=== PATIENT | male | born 1970 | race Caucasian/White ===

== ENCOUNTER 2020-05-18 20:10 | Inpatient (IN) | payer OTHER ==
[~2020-05-18] VITALS: Ht 175.3 cm; Wt 120.3 kg
[2020-05-18 20:15] VITALS: BP 107/70
[2020-05-18 23:00] VITALS: BP 126/63
[2020-05-18] MEDS ORDERED: ONDANSETRON PF 4 MG/2 ML VIAL. IVP PRN (23:15)
[2020-05-18] MEDS ORDERED: MORPHINE SULFATE 4 MG/ML VIAL. IV PRN (23:15)
[2020-05-19] MEDS ORDERED: METO-247 PO (02:50)
[2020-05-19] MEDS ORDERED: LISI10TA2 PO (02:50)
[2020-05-19] MEDS ORDERED: FURO20TA3 PO (02:50)
[2020-05-19] MEDS ORDERED: OMEP20TA63 PO (02:50)
[2020-05-19] MEDS ORDERED: LOSA-73 PO (02:50)
[2020-05-19] MEDS ORDERED: POTA10TA12 PO (02:50)
[2020-05-19] MEDS ORDERED: IBUP-1060 PO (02:50)
[2020-05-19 03:00] VITALS: BP 105/66
[2020-05-19 04:32] LABS: BASO # 0.1 x10^3/uL (0.0-0.2); BASO % 1 % (0-3); EOS # 0.1 x10^3/uL (0.0-0.7); EOS % 1 % (0-3); HEMATOCRIT 39.9 % (39.0-53.0); LYMPH # 2.9 x10^3/uL (1.0-4.8); LYMPH % 30 % (24-48); MEAN CORPUSCULAR HEMOGLOBIN 30 pg (25-35); MEAN CORPUSCULAR HGB CONC 35 g/dL (31-37); MEAN CORPUSCULAR VOLUME 86 fL (79-100); MONO # 0.8 x10^3/uL (0.0-1.1); MONO % 9 % (0-9); NEUT # 5.8 x10^3/uL (1.8-7.7); NEUT % 60 % (31-73); PLATELET COUNT 226 x10^3/uL (140-400); RED BLOOD COUNT 4.66 x10^6/uL (4.30-5.70); RED CELL DISTRIBUTION WIDTH 14.5 % (11.5-14.5); WHITE BLOOD COUNT 9.8 x10^3/uL (4.0-11.0)
[2020-05-19 04:58] LABS: ALBUMIN 3.3 g/dL (3.4-5.0); CALCIUM 8.3 mg/dL (8.5-10.1); GFR 78.8; POTASSIUM 4.1 mmol/L (3.5-5.1); TOTAL BILIRUBIN 0.8 mg/dL (0.2-1.0); TOTAL PROTEIN 6.6 g/dL (6.4-8.2)
[2020-05-19 07:00] VITALS: BP 104/70
--- NOTE | 2020-05-19 08:48 | PDOC1 ---
History and Physical Date of Admission Date of Admission DATE: 05/19/20 TIME: 08:48 Identification/Chief Complaint Chief Complaint direct admit from [facility] ER WITH PSBO SEEN ON CT, HAS FELT BETTER SINE ADMIT, HAS BEEN NPO past hx colon resection for diverticulitis , [place] Past Medical History Past Medical History OBESITY Cardiovascular: HTN, Hyperlipidemia GI: Diverticulosis Psych: Addictions Infectious disease: No pertinent hx Past Surgical History Past Surgical History: Colectomy, Colon Resection Family History Family History: High Cholestrol, Hypertension Social History Smoke: Quit ALCOHOL: none Drugs: None Current Medications Current Medications Current Medications Ondansetron HCl (Zofran) 4 mg PRN Q4HRS PRN IVP NAUSEA/VOMITING 1ST CHOICE; Start 05/18/20 at 23:15 Morphine Sulfate (Morphine Sulfate) 4 mg PRN Q2HR PRN IV SEVERE PAIN 7-10 Last administered on 05/19/20at 04:07; Start 05/18/20 at 23:15 Active Scripts Active Reported Ibuprofen 800 Mg Tablet 800 Mg PO PRN TID PRN Prilosec Otc (Omeprazole Magnesium) 20 Mg Tablet.dr 1 Tab PO DAILY 30 Days Klor-Con 10 (Potassium Chloride) 10 Meq Tablet.er 1 Tab PO DAILY 30 Days Furosemide 20 Mg Tablet 10 Mg PO DAILY Metoprolol Succinate ( Xl ) (Metoprolol Succinate) 100 Mg Tab.er.24h 1 Tab PO BID Losartan Potassium 50 Mg Tablet 50 Mg PO DAILY Lisinopril 10 Mg Tablet 1 Tab PO DAILY Allergies Allergies: Coded Allergies: No Known Medication Allergies (Verified Allergy, Unknown, 05/18/20) ROS Review of System 14 pt ros otherwise neg General: No: Chills, Night Sweats, Fatigue, Malaise, Appetite, Other PSYCHOLOGICAL ROS: No: Anxiety, Behavioral Disorder, Concentration difficultie, Decreased libido, Depression, Disorientation, Hallucinations, Hostility, Irritablity, Memory difficulties, Mood Swings, Obsessive thoughts, Physical abuse, Sexual abuse, Sleep disturbances, Suicidal ideation, Other Eyes: No Blurry vision, No Decreased vision, No Double vision, No Dry eyes, No Excessive tearing, No Eye Pain, No Itchy Eyes, No Loss of vision, No Photophobia, No Scotomata, No Uses contacts, No Uses glasses, No Other HEENT: No: Heacaches, Visual Changes, Hearing change, Nasal congestion, Nasal discharge, Oral lesions, Sinus pain, Sore Throat, Epistaxis, Sneezing, Snoring, Tinnitus, Vertigo, Vocal changes, Other ALLERGY AND IMMUNOLOGY: No: Hives, Insect Bite Sensitivity, Itchy/Watery Eyes, Nasal Congestion, Post Nasal Drip, Seasonal Allergies, Other Hematological and Lymphatic: No: Bleeding Problems, Blood Clots, Blood Transfusions, Brusing, Night Sweats, Pallor, Swollen Lymph Nodes, Other ENDOCRINE: No: Breast Changes, Galactorrhea, Hair Pattern Changes, Hot Flashes, Malaise/lethargy, Mood Swings, Palpitations, Polydipsia/polyuria, Skin Changes, Temperature Intolerance, Unexpected Weight Changes, Other Breast: No New/Changing Breast Lumps, No Nipple changes, No Nipple discharge, No Other Respiratory: No: Cough, Hemoptysis, Orthopnea, Pleuritic Pain, Shortness of breath, SOB with excertion, Sputum Changes, Stridor, Tachypnea, Wheezing, Other Cardiovascular: No Chest Pain, No Palpitations, No Orthopnea, No Paroxysmal Noc. Dyspnea, No Edema, No Lt Headedness, No Other Gastrointestinal: Yes Nausea, Yes Vomiting, Yes Abdominal Pain, Yes Melena; No Diarrhea, No Constipation, No Hematochezia, No Other Genitourinary: No Dysuria, No Frequency, No Incontinence, No Hematuria, No Retention, No Discharge, No Urgency, No Pain, No Flank Pain, No Other, No , No , No , No , No , No , No Musculoskeletal: No Gait Disturbance, No Joint Pain, No Joint Stiffness, No Joint Swelling, No Muscle Pain, No Muscular Weakness, No Pain In:, No Swelling In:, No Other Neurological: No Behavorial Changes, No Bowel/Bladder ControlChng, No Confusion, No Dizziness, No Gait Disturbance, No Headaches, No Impaired Coord/balance, No Memory Loss, No Numbness/Tingling, No Seizures, No Speech Problems, No Tremors, No Visual Changes, No Weakness, No Other Skin: No Dry Skin, No Eczema, No Hair Changes, No Lumps, No Mole Changes, No Mottling, No Nail Changes, No Pruritus, No Rash, No Skin Lesion Changes, No Other, No Acne Physical Exam General: Alert, Oriented X3, Cooperative, No acute distress HEENT: Atraumatic, PERRLA, EOMI, Mucous membr. moist/pink Lungs: Clear to auscultation, Normal air movement Heart: S1S2, RRR, no thrills, no gallops, no murmurs Breasts: Not examined Abdomen: Normal bowel sounds, Soft, Other (DEC BS ) Rectal Exam: not examined Extremities: No cyanosis, No edema Skin: No breakdown, No significant lesion Neuro: Normal speech, Strength at 5/5 X4 ext, Cranial nerves 3-12 NL Psych/Mental Status: Mental status NL, Mood NL Vitals Vitals Vital Signs Date Time Temp Pulse Resp B/P (MAP) Pulse Ox O2 Delivery O2 Flow Rate FiO2 05/19/20 07:00 97.6 88 16 104/70 (81) 92 Room Air 97.6 Labs Labs Laboratory Tests Test 05/19/20 04:10 White Blood Count 9.8 x10^3/uL (4.0-11.0) Red Blood Count 4.66 x10^6/uL (4.30-5.70) Hemoglobin 14.0 g/dL (13.0-17.5) Hematocrit 39.9 % (39.0-53.0) Mean Corpuscular Volume 86 fL (79-100) Mean Corpuscular Hemoglobin 30 pg (25-35) Mean Corpuscular Hemoglobin Concent 35 g/dL (31-37) Red Cell Distribution Width 14.5 % (11.5-14.5) Platelet Count 226 x10^3/uL (140-400) Neutrophils (%) (Auto) 60 % (31-73) Lymphocytes (%) (Auto) 30 % (24-48) Monocytes (%) (Auto) 9 % (0-9) Eosinophils (%) (Auto) 1 % (0-3) Basophils (%) (Auto) 1 % (0-3) Neutrophils # (Auto) 5.8 x10^3/uL (1.8-7.7) Lymphocytes # (Auto) 2.9 x10^3/uL (1.0-4.8) Monocytes # (Auto) 0.8 x10^3/uL (0.0-1.1) Eosinophils # (Auto) 0.1 x10^3/uL (0.0-0.7) Basophils # (Auto) 0.1 x10^3/uL (0.0-0.2) Sodium Level 140 mmol/L (136-145) Potassium Level 4.1 mmol/L (3.5-5.1) Chloride Level 105 mmol/L (98-107) Carbon Dioxide Level 24 mmol/L (21-32) Anion Gap 11 (6-14) Blood Urea Nitrogen 20 mg/dL (8-26) Creatinine 1.0 mg/dL (0.7-1.3) Estimated GFR (Cockcroft-Gault) 78.8 BUN/Creatinine Ratio 20 (6-20) Glucose Level 98 mg/dL (70-99) Calcium Level 8.3 mg/dL (8.5-10.1) Total Bilirubin 0.8 mg/dL (0.2-1.0) Aspartate Amino Transf (AST/SGOT) 272 U/L (15-37) Alanine Aminotransferase (ALT/SGPT) 165 U/L (16-63) Alkaline Phosphatase 66 U/L (46-116) Total Protein 6.6 g/dL (6.4-8.2) Albumin 3.3 g/dL (3.4-5.0) Albumin/Globulin Ratio 1.0 (1.0-1.7) Laboratory Tests Test 05/19/20 04:10 White Blood Count 9.8 x10^3/uL (4.0-11.0) Red Blood Count 4.66 x10^6/uL (4.30-5.70) Hemoglobin 14.0 g/dL (13.0-17.5) Hematocrit 39.9 % (39.0-53.0) Mean Corpuscular Volume 86 fL (79-100) Mean Corpuscular Hemoglobin 30 pg (25-35) Mean Corpuscular Hemoglobin Concent 35 g/dL (31-37) Red Cell Distribution Width 14.5 % (11.5-14.5) Platelet Count 226 x10^3/uL (140-400) Neutrophils (%) (Auto) 60 % (31-73) Lymphocytes (%) (Auto) 30 % (24-48) Monocytes (%) (Auto) 9 % (0-9) Eosinophils (%) (Auto) 1 % (0-3) Basophils (%) (Auto) 1 % (0-3) Neutrophils # (Auto) 5.8 x10^3/uL (1.8-7.7) Lymphocytes # (Auto) 2.9 x10^3/uL (1.0-4.8) Monocytes # (Auto) 0.8 x10^3/uL (0.0-1.1) Eosinophils # (Auto) 0.1 x10^3/uL (0.0-0.7) Basophils # (Auto) 0.1 x10^3/uL (0.0-0.2) Sodium Level 140 mmol/L (136-145) Potassium Level 4.1 mmol/L (3.5-5.1) Chloride Level 105 mmol/L (98-107) Carbon Dioxide Level 24 mmol/L (21-32) Anion Gap 11 (6-14) Blood Urea Nitrogen 20 mg/dL (8-26) Creatinine 1.0 mg/dL (0.7-1.3) Estimated GFR (Cockcroft-Gault) 78.8 BUN/Creatinine Ratio 20 (6-20) Glucose Level 98 mg/dL (70-99) Calcium Level 8.3 mg/dL (8.5-10.1) Total Bilirubin 0.8 mg/dL (0.2-1.0) Aspartate Amino Transf (AST/SGOT) 272 U/L (15-37) Alanine Aminotransferase (ALT/SGPT) 165 U/L (16-63) Alkaline Phosphatase 66 U/L (46-116) Total Protein 6.6 g/dL (6.4-8.2) Albumin 3.3 g/dL (3.4-5.0) Albumin/Globulin Ratio 1.0 (1.0-1.7) Images Images ACUTE ABDOMEN SERIES History: Reason: SMALL BOWEL OBSTRUCTION / Spl. Instructions: / History: Technique: Upright and supine views of the abdomen. Comparison: CT May 18, 2020 Findings: No consultation or pleural effusion. Normal heart size. No pneumothorax. Right shoulder arthroplasty. No pneumoperitoneum. Surgical clips right upper quadrant. Mildly dilated air-filled loops of small bowel within the mid and left abdomen, decreased compared to prior. Contrast noted throughout the colon and rectum progressed compared to prior. Lower lumbar spondylosis. Impression: 1. Decreased mildly dilated small bowel loops. 2. Progression of contrast into the colon and rectum compared to prior CT. Electronically signed by: Rene Everett DO (05/19/2020 10:44 AM) [id number] DICTATED and SIGNED BY: RENE EVERETT DO DATE: 05/19/20 1044 REASON: transaminitis PROCEDURE: ABDOMEN COMPLETE ABDOMEN COMPLETE History: Reason: transaminitis / Spl. Instructions: / History: Comparison: CT May 18, 2020 Technique: Sonographic examination of the abdomen was performed and multiple grayscale and color Doppler static images were obtained. Findings: Liver demonstrates normal echogenicity. The liver measures 18.7 cm. Portal flow is patent. Common bile duct measures 5.2 mm in diameter. Prior cholecystectomy. Visualized pancreas is is not well seen due to overlying bowel gas The right kidney measures 12.3 x 5.4 x 4.1 cm. No hydronephrosis. The left kidney measures 13.1 x 4.4 x 5.9 cm. No hydronephrosis. The spleen measures 11.4 cm. Aorta and IVC not well seen due to bowel gas. IMPRESSION: 1. Hepatomegaly. 2. Prior cholecystectomy. Electronically signed by: Rene Everett DO (05/19/2020 10:29 AM) [id number] DICTATED and SIGNED BY: RENE EVERETT DO DATE: 05/19/20 1029 VTE Prophylaxis Ordered VTE Prophylaxis Devices: Yes VTE Pharmacological Prophylaxi: Yes Assessment/Plan Assessment/Plan IMPRESSION: 1. PARTIAL Acute small bowel obstruction 2. Hepatomegaly. 3. Prior cholecystectomy. 4. MORBID OBESITY 5. Decreased mildly dilated small bowel loops. KUB 05/19 6. Progression of contrast into the colon and rectum compared to prior CT. 05/19 7. PREVOIUS COLECTOMY FOR DIVERTICULITIS 8. EGD and colonoscopy <1 year ago @ [facility]. H/o diverticular disease s/p partial colectomy in [place]. S/p cholecystectomy for stones 9. HX HEP C 10. HYPERTENSION 11. HYPERLIPIDEMIA 12. ABDOMINAL WALL Hernias, present on admit plan admit NPO TO CLEARS IV FLUID SUPPORT Consult gen surgery consult GI DVT PROPHYLAXIS IV PROTONIX HOME MEDS Justicifation of Admission Dx: Justifications for Admission: Justification of Admission Dx: Yes Comments: partial small bowel obstruction ADRIAN BARLOW MD May 19, 2020 08:48
--- NOTE | 2020-05-19 09:45 | PDOC2 ---
GI CONSULT Date of Service: DATE: 05/19/20 TIME: 09:45 Reason For Consult: SBO HPI: HPI: 49 y/o male who lives in a [facility] house sent from [facility]. 6 months of intermit tent abd pain with "a bubble" by belly button. Worse this time, no precipitating events. Associated with vomiting and diarrhea. H/o GERD on omeprazole. No dysphagia or hematemesis. No change in appetite or weight loss. Occasional constipation in the past improved w/ OTC medications. No hematochezia or melena. EGD and colonoscopy <1 year ago @ [facility]. H/o diverticular disease s/p partial colectomy in [place]. S/p cholecystectomy for stones - had GS pancreatitis. H/o Hep C recently treated w/ Harvoni. Ibuprofen PRN. At [facility]: WBC 13.4, BUN 27, Cr 1.2, AST 502, ALT 214, normal lipase. CT w/ Dilated SB loops and distal decompression - possible partial SBO. Also noted multiple abd wall hernias w/ loops of bowel. PMH: PMH: PSVT, MRSA abscess, HTN, gallstone pancreatitis, diverticular disease cholecystectomy, partial colectomy FH: Family History: No pertinent hx Social History: Smoke: No ALCOHOL: none Drugs: Other (IVDU in the past) ROS: GEN: Denies fevers, chills, sweats HEENT: Denies blurred vision, sore throat CV: Denies chest pain RESP: Denies shortness of air, cough GI: Per HPI : Denies hematuria, dysuria ENDO: Denies weight changes NEURO: Denies confusion, dizziness MSK: Denies weakness, joint pain/swelling SKIN: Denies jaundice, pruritus Vitals: Vitals: Vital Signs Date Time Temp Pulse Resp B/P (MAP) Pulse Ox O2 Delivery O2 Flow Rate FiO2 05/19/20 07:00 97.6 88 16 104/70 (81) 92 Room Air 97.6 Labs: Labs: Laboratory Tests Test 05/19/20 04:10 White Blood Count 9.8 x10^3/uL (4.0-11.0) Red Blood Count 4.66 x10^6/uL (4.30-5.70) Hemoglobin 14.0 g/dL (13.0-17.5) Hematocrit 39.9 % (39.0-53.0) Mean Corpuscular Volume 86 fL (79-100) Mean Corpuscular Hemoglobin 30 pg (25-35) Mean Corpuscular Hemoglobin Concent 35 g/dL (31-37) Red Cell Distribution Width 14.5 % (11.5-14.5) Platelet Count 226 x10^3/uL (140-400) Neutrophils (%) (Auto) 60 % (31-73) Lymphocytes (%) (Auto) 30 % (24-48) Monocytes (%) (Auto) 9 % (0-9) Eosinophils (%) (Auto) 1 % (0-3) Basophils (%) (Auto) 1 % (0-3) Neutrophils # (Auto) 5.8 x10^3/uL (1.8-7.7) Lymphocytes # (Auto) 2.9 x10^3/uL (1.0-4.8) Monocytes # (Auto) 0.8 x10^3/uL (0.0-1.1) Eosinophils # (Auto) 0.1 x10^3/uL (0.0-0.7) Basophils # (Auto) 0.1 x10^3/uL (0.0-0.2) Sodium Level 140 mmol/L (136-145) Potassium Level 4.1 mmol/L (3.5-5.1) Chloride Level 105 mmol/L (98-107) Carbon Dioxide Level 24 mmol/L (21-32) Anion Gap 11 (6-14) Blood Urea Nitrogen 20 mg/dL (8-26) Creatinine 1.0 mg/dL (0.7-1.3) Estimated GFR (Cockcroft-Gault) 78.8 BUN/Creatinine Ratio 20 (6-20) Glucose Level 98 mg/dL (70-99) Calcium Level 8.3 mg/dL (8.5-10.1) Total Bilirubin 0.8 mg/dL (0.2-1.0) Aspartate Amino Transf (AST/SGOT) 272 U/L (15-37) Alanine Aminotransferase (ALT/SGPT) 165 U/L (16-63) Alkaline Phosphatase 66 U/L (46-116) Total Protein 6.6 g/dL (6.4-8.2) Albumin 3.3 g/dL (3.4-5.0) Albumin/Globulin Ratio 1.0 (1.0-1.7) Allergies: Coded Allergies: No Known Medication Allergies (Verified Allergy, Unknown, 05/18/20) Medications: Current Medications Medications (Trade) Dose Ordered Sig/Christen Route PRN Reason Start Time Stop Time Status Last Admin Dose Admin Morphine Sulfate (Morphine Sulfate) 4 mg PRN Q2HR PRN IV SEVERE PAIN 7-10 05/18/20 23:15 05/19/20 04:07 PE: GEN: NAD HEENT: Atraumatic, PERRL LUNGS: CTAB HEART: RRR ABD: hyperactive BS, large/obese, tender hernia right umbilical EXTREMITY: No edema SKIN: tattoos NEURO/PSYCH: A & O 3 A/P: A/P: Recurrent abd pain w/ vomiting and diarrhea Elevated AST and ALT Abnormal CT - partial SBO, hernias w/ loops of bowel GERD - on PPI, recent EGD CRC screen - UTD H/o partial colectomy for diverticulitis S/p cholecystectomy H/o gallstone pancreatitis H/o Hep C s/p Harvoni tx -- Will ask surgery to comment. Note x-ray and abd US ordered by Dr. Gagnon - await these. Stool studies for completeness. IV PPI for now. Monitor LFTs. Has been NPO w/o IVF - c/o dizziness and decreased urine outpt. D/w nurse this morning - defer IVF management to Dr. Gagnon. VALENCIA KOEHLER May 19, 2020 09:45
[2020-05-19] MEDS ORDERED: PANTOPRAZOLE IV PUSH 40 MG VIAL. IVP SCH (10:00)
--- NOTE | 2020-05-19 10:32 | RAD ---
ABDOMEN COMPLETE History: Reason: transaminitis / Spl. Instructions: / History: Comparison: CT May 18, 2020 Technique: Sonographic examination of the abdomen was performed and multiple grayscale and color Doppler static images were obtained. Findings: Liver demonstrates normal echogenicity. The liver measures 18.7 cm. Portal flow is patent. Common bile duct measures 5.2 mm in diameter. Prior cholecystectomy. Visualized pancreas is is not well seen due to overlying bowel gas The right kidney measures 12.3 x 5.4 x 4.1 cm. No hydronephrosis. The left kidney measures 13.1 x 4.4 x 5.9 cm. No hydronephrosis. The spleen measures 11.4 cm. Aorta and IVC not well seen due to bowel gas. IMPRESSION: 1. Hepatomegaly. 2. Prior cholecystectomy. Electronically signed by: Raymond Echols DO (05/19/2020 10:29 AM) [id number]
--- NOTE | 2020-05-19 10:47 | RAD ---
ACUTE ABDOMEN SERIES History: Reason: SMALL BOWEL OBSTRUCTION / Spl. Instructions: / History: Technique: Upright and supine views of the abdomen. Comparison: CT May 18, 2020 Findings: No consultation or pleural effusion. Normal heart size. No pneumothorax. Right shoulder arthroplasty. No pneumoperitoneum. Surgical clips right upper quadrant. Mildly dilated air-filled loops of small bowel within the mid and left abdomen, decreased compared to prior. Contrast noted throughout the colon and rectum progressed compared to prior. Lower lumbar spondylosis. Impression: 1. Decreased mildly dilated small bowel loops. 2. Progression of contrast into the colon and rectum compared to prior CT. Electronically signed by: Raymond Echols DO (05/19/2020 10:44 AM) [id number]
--- NOTE | 2020-05-19 11:16 | PDOC2 ---
MARAH HOBSON [employer] 05/19/20 1116: CONSULT Date of Consult Date of Consult DATE: 05/19/20 TIME: 11:08 Reason for Consult Reason for Consult: SBO Referring Physician Referring Physician: ER Identification/Chief Complaint Chief Complaint abdominal pain Source Source: Chart review, Patient History of Present Illness Reason for Visit: Abdominal pain, acute, however has had this occur intermittently over six months. Sometimes feels hard area over abdomen. Loose stool couple days ago. Pain is improved today, some flatus Significant surgical hx of diverticulitis requiring colostomy and re-anastomosis Past Medical History Cardiovascular: HTN, Other (SVT-ablation ) Pulmonary: Bronchitis GI: Other (pancreatitis ) Past Surgical History Past Surgical History: Cholecystectomy, Colon Resection Family History Family History: Family History Unknown Social History No ALCOHOL: social Current Medications Current Medications Current Medications Ondansetron HCl (Zofran) 4 mg PRN Q4HRS PRN IVP NAUSEA/VOMITING 1ST CHOICE; Start 05/18/20 at 23:15 Morphine Sulfate (Morphine Sulfate) 4 mg PRN Q2HR PRN IV SEVERE PAIN 7-10 Last administered on 05/19/20at 04:07; Start 05/18/20 at 23:15 Pantoprazole Sodium (PROTONIX VIAL for IV PUSH) 40 mg DAILYAC IVP ; Start 05/19/20 at 10:00 Active Scripts Active Reported Ibuprofen 800 Mg Tablet 800 Mg PO PRN TID PRN Prilosec Otc (Omeprazole Magnesium) 20 Mg Tablet.dr 1 Tab PO DAILY 30 Days Klor-Con 10 (Potassium Chloride) 10 Meq Tablet.er 1 Tab PO DAILY 30 Days Furosemide 20 Mg Tablet 10 Mg PO DAILY Metoprolol Succinate ( Xl ) (Metoprolol Succinate) 100 Mg Tab.er.24h 1 Tab PO BID Losartan Potassium 50 Mg Tablet 50 Mg PO DAILY Lisinopril 10 Mg Tablet 1 Tab PO DAILY Allergies Allergies: Coded Allergies: No Known Medication Allergies (Verified Allergy, Unknown, 05/18/20) ROS General: No: Chills, Other (fevers ) PSYCHOLOGICAL ROS: No: Anxiety, Depression Eyes: No Blurry vision, No Double vision HEENT: No: Heacaches, Sore Throat Hematological and Lymphatic: No: Bleeding Problems, Blood Clots Respiratory: No: Cough, Shortness of breath Cardiovascular: No Chest Pain, No Palpitations Gastrointestinal: Yes Other (see hpi) Genitourinary: No Dysuria, No Hematuria Musculoskeletal: No Joint Pain, No Muscle Pain Neurological: No Headaches, No Numbness/Tingling Skin: No Pruritus, No Rash Physical Exam General: Alert, Oriented X3, Cooperative HEENT: Atraumatic, PERRLA Lungs: Clear to auscultation, Normal air movement Heart: Regular rate, Normal S1, Normal S2 Abdomen: Soft, Other (ND, scars on abdomen) Extremities: No clubbing, No cyanosis Skin: No rashes, No breakdown Neuro: Normal gait, Normal speech Psych/Mental Status: Mental status NL, Mood NL MUSCULOSKELETAL: No deformity, No swelling Vitals VITALS Vital Signs Date Time Temp Pulse Resp B/P (MAP) Pulse Ox O2 Delivery O2 Flow Rate FiO2 05/19/20 07:00 97.6 88 16 104/70 (81) 92 Room Air 97.6 Labs Labs Laboratory Tests Test 05/19/20 04:10 White Blood Count 9.8 x10^3/uL (4.0-11.0) Red Blood Count 4.66 x10^6/uL (4.30-5.70) Hemoglobin 14.0 g/dL (13.0-17.5) Hematocrit 39.9 % (39.0-53.0) Mean Corpuscular Volume 86 fL (79-100) Mean Corpuscular Hemoglobin 30 pg (25-35) Mean Corpuscular Hemoglobin Concent 35 g/dL (31-37) Red Cell Distribution Width 14.5 % (11.5-14.5) Platelet Count 226 x10^3/uL (140-400) Neutrophils (%) (Auto) 60 % (31-73) Lymphocytes (%) (Auto) 30 % (24-48) Monocytes (%) (Auto) 9 % (0-9) Eosinophils (%) (Auto) 1 % (0-3) Basophils (%) (Auto) 1 % (0-3) Neutrophils # (Auto) 5.8 x10^3/uL (1.8-7.7) Lymphocytes # (Auto) 2.9 x10^3/uL (1.0-4.8) Monocytes # (Auto) 0.8 x10^3/uL (0.0-1.1) Eosinophils # (Auto) 0.1 x10^3/uL (0.0-0.7) Basophils # (Auto) 0.1 x10^3/uL (0.0-0.2) Sodium Level 140 mmol/L (136-145) Potassium Level 4.1 mmol/L (3.5-5.1) Chloride Level 105 mmol/L (98-107) Carbon Dioxide Level 24 mmol/L (21-32) Anion Gap 11 (6-14) Blood Urea Nitrogen 20 mg/dL (8-26) Creatinine 1.0 mg/dL (0.7-1.3) Estimated GFR (Cockcroft-Gault) 78.8 BUN/Creatinine Ratio 20 (6-20) Glucose Level 98 mg/dL (70-99) Calcium Level 8.3 mg/dL (8.5-10.1) Total Bilirubin 0.8 mg/dL (0.2-1.0) Aspartate Amino Transf (AST/SGOT) 272 U/L (15-37) Alanine Aminotransferase (ALT/SGPT) 165 U/L (16-63) Alkaline Phosphatase 66 U/L (46-116) Total Protein 6.6 g/dL (6.4-8.2) Albumin 3.3 g/dL (3.4-5.0) Albumin/Globulin Ratio 1.0 (1.0-1.7) Laboratory Tests Test 05/19/20 04:10 White Blood Count 9.8 x10^3/uL (4.0-11.0) Red Blood Count 4.66 x10^6/uL (4.30-5.70) Hemoglobin 14.0 g/dL (13.0-17.5) Hematocrit 39.9 % (39.0-53.0) Mean Corpuscular Volume 86 fL (79-100) Mean Corpuscular Hemoglobin 30 pg (25-35) Mean Corpuscular Hemoglobin Concent 35 g/dL (31-37) Red Cell Distribution Width 14.5 % (11.5-14.5) Platelet Count 226 x10^3/uL (140-400) Neutrophils (%) (Auto) 60 % (31-73) Lymphocytes (%) (Auto) 30 % (24-48) Monocytes (%) (Auto) 9 % (0-9) Eosinophils (%) (Auto) 1 % (0-3) Basophils (%) (Auto) 1 % (0-3) Neutrophils # (Auto) 5.8 x10^3/uL (1.8-7.7) Lymphocytes # (Auto) 2.9 x10^3/uL (1.0-4.8) Monocytes # (Auto) 0.8 x10^3/uL (0.0-1.1) Eosinophils # (Auto) 0.1 x10^3/uL (0.0-0.7) Basophils # (Auto) 0.1 x10^3/uL (0.0-0.2) Sodium Level 140 mmol/L (136-145) Potassium Level 4.1 mmol/L (3.5-5.1) Chloride Level 105 mmol/L (98-107) Carbon Dioxide Level 24 mmol/L (21-32) Anion Gap 11 (6-14) Blood Urea Nitrogen 20 mg/dL (8-26) Creatinine 1.0 mg/dL (0.7-1.3) Estimated GFR (Cockcroft-Gault) 78.8 BUN/Creatinine Ratio 20 (6-20) Glucose Level 98 mg/dL (70-99) Calcium Level 8.3 mg/dL (8.5-10.1) Total Bilirubin 0.8 mg/dL (0.2-1.0) Aspartate Amino Transf (AST/SGOT) 272 U/L (15-37) Alanine Aminotransferase (ALT/SGPT) 165 U/L (16-63) Alkaline Phosphatase 66 U/L (46-116) Total Protein 6.6 g/dL (6.4-8.2) Albumin 3.3 g/dL (3.4-5.0) Albumin/Globulin Ratio 1.0 (1.0-1.7) Assessment/Plan Assessment/Plan SBO xr show contrast in colon --no current obstruction--will review with ADRIAN Larson MD 05/19/20 1132: CONSULT Assessment/Plan Assessment/Plan Patient seen and examined by me currently is resting comfortably in bed feeling much better no nausea no vomiting passing flatus abdominal film shows contrast from the CT in the colon currently will advance to clear liquids. Will likely need is abdominal hernia dressed this can be done electively as an outpatient agree with Ced assessment and plan MARAH HOBSON [employer] May 19, 2020 11:16 ADRIAN SHARMA MD May 19, 2020 11:32
[2020-05-19 11:18] VITALS: BP 130/74
--- NOTE | 2020-05-19 11:29 | NUR ---
SW following. Discussed with RN, pt recently released from skilled nursing on 04/18/2020, now residing at [facility]. SW contacted [facility] [place] (ph: [phone]) to verify if a COVID-19 test is required prior to returning - this is needed. SW notified RN of need COVID-19 swab. Pt room air, NPO, GI following. SW will continue to follow.
[2020-05-19] MEDS ORDERED: ALBUTEROL SULFATE 2.5 MG/3 ML NEBU. NEB PRN (12:00)
[2020-05-19] MEDS ORDERED: SODIUM PHOSPHATES 19/7GM 133 ML ENEMA. PR PRN (12:00)
[2020-05-19] MEDS ORDERED: LORazepam 0.5 MG TABLET PO PRN (12:00)
[2020-05-19] MEDS ORDERED: 0.9 % SODIUM CHLORIDE 10 ML DISP.SYRIN. IV PRN (12:00)
[2020-05-19] MEDS ORDERED: ONDANSETRON PF 4 MG/2 ML VIAL. IV PRN (12:00)
[2020-05-19] MEDS ORDERED: guaiFENesin ORAL 200 MG/10 ML LIQUID. PO PRN (12:00)
[2020-05-19] MEDS ORDERED: ACETAMINOPHEN 325 MG TABLET. PO PRN (12:00)
[2020-05-19] MEDS ORDERED: cloNIDine HCL 0.1 MG TABLET PO PRN (12:00)
[2020-05-19] MEDS: POTASSIUM CHLORIDE 10 MEQ TABLET.ER. PO SCH (12:24)
[2020-05-19] MEDS: LOSARTAN POTASSIUM 50 MG TABLET. PO SCH (12:24)
[2020-05-19] MEDS: ENOXAPARIN 40 MG/0.4 ML SYRINGE. SQ SCH ×2 (12:24→22:24)
[2020-05-19] MEDS: METOPROLOL SUCC 24HR ER 100 MG TAB.ER.24H. PO SCH ×2 (12:25→22:23)
[2020-05-19] MEDS: IV NORMAL SALINE 1000ML BAG 1,000 ML IV SCH ×2 (12:27→22:24)
[2020-05-19 15:00] VITALS: BP 119/72
--- NOTE | 2020-05-19 16:01 | NUR ---
Santosh Chan from [facility] called after speaking w/ other staff there to report a Covid swab is NOT needed for return to [facility] as patient has been in quarantine since release from care home.
[2020-05-19 19:00] VITALS: BP 120/78
[2020-05-19 23:00] VITALS: BP 119/68
[2020-05-20 03:00] VITALS: BP 106/73
[2020-05-20] MEDS: IV NORMAL SALINE 1000ML BAG 1,000 ML IV SCH (06:02)
[2020-05-20 07:00] VITALS: BP 121/77
[2020-05-20 07:03] LABS: BASO # 0.1 x10^3/uL (0.0-0.2); BASO % 1 % (0-3); EOS # 0.1 x10^3/uL (0.0-0.7); EOS % 2 % (0-3); HEMATOCRIT 39.1 % (39.0-53.0); HEMOGLOBIN 13.5 g/dL (13.0-17.5); LYMPH % 30 % (24-48); MEAN CORPUSCULAR HEMOGLOBIN 30 pg (25-35); MEAN CORPUSCULAR HGB CONC 35 g/dL (31-37); MEAN CORPUSCULAR VOLUME 86 fL (79-100); MONO # 0.7 x10^3/uL (0.0-1.1); MONO % 11 % (0-9); NEUT # 3.8 x10^3/uL (1.8-7.7); NEUT % 56 % (31-73); PLATELET COUNT 215 x10^3/uL (140-400); RED BLOOD COUNT 4.56 x10^6/uL (4.30-5.70); RED CELL DISTRIBUTION WIDTH 14.2 % (11.5-14.5); WHITE BLOOD COUNT 6.8 x10^3/uL (4.0-11.0)
[2020-05-20] MEDS: POTASSIUM CHLORIDE 10 MEQ TABLET.ER. PO SCH (09:23)
[2020-05-20] MEDS: ENOXAPARIN 40 MG/0.4 ML SYRINGE. SQ SCH (09:24)
[2020-05-20] MEDS: METOPROLOL SUCC 24HR ER 100 MG TAB.ER.24H. PO SCH ×2 (09:28→21:30)
[2020-05-20] MEDS: LOSARTAN POTASSIUM 50 MG TABLET. PO SCH (09:29)
[2020-05-20] MEDS: LISINOPRIL 10 MG TABLET PO SCH (09:30)
--- NOTE | 2020-05-20 10:28 | PDOC ---
PROGRESS NOTES Date of Service: DATE: 05/20/20 TIME: 10:27 Chief Complaint Chief Complaint VTE Prophylaxis Ordered VTE Prophylaxis Devices: Yes VTE Pharmacological Prophylaxi: Yes Assessment/Plan Assessment/Plan IMPRESSION: 1. PARTIAL Acute small bowel obstruction 2. Hepatomegaly. 3. Prior cholecystectomy. 4. MORBID OBESITY 5. Decreased mildly dilated small bowel loops. KUB 05/19 6. Progression of contrast into the colon and rectum compared to prior CT. 05/19 7. PREVOIUS COLECTOMY FOR DIVERTICULITIS 8. EGD and colonoscopy <1 year ago @ [facility]. H/o diverticular disease s/p partial colectomy in [place]. S/p cholecystectomy for stones 9. HX HEP C 10. HYPERTENSION 11. HYPERLIPIDEMIA 12. ABDOMINAL WALL Hernias, present on admit plan admit adat IV FLUID SUPPORT Consult gen surgery consult GI DVT PROPHYLAXIS IV PROTONIX HOME MEDS d/w rn Justicifation of Admission Dx: Justicifation of Admission Dx: Justifications for Admission: Justification of Admission Dx: Yes Comments: partial small bowel obstruction Vitals Vitals Vital Signs Date Time Temp Pulse Resp B/P (MAP) Pulse Ox O2 Delivery O2 Flow Rate FiO2 05/20/20 09:30 78 117/59 05/20/20 07:00 98.4 16 95 Room Air 98.4 Physical Exam General: Alert, Oriented X3, Cooperative, No acute distress Heart: Regular rate, Normal S1, Normal S2 Lungs: Clear Abdomen: Normal bowel sounds, Soft, Other (DEC BS ) Extremities: No clubbing, No cyanosis, No edema Skin: No breakdown, No significant lesion Labs LABS ACUTE ABDOMEN SERIES History: Reason: SMALL BOWEL OBSTRUCTION / Spl. Instructions: / History: Technique: Upright and supine views of the abdomen. Comparison: CT May 18, 2020 Findings: No consultation or pleural effusion. Normal heart size. No pneumothorax. Right shoulder arthroplasty. No pneumoperitoneum. Surgical clips right upper quadrant. Mildly dilated air-filled loops of small bowel within the mid and left abdomen, decreased compared to prior. Contrast noted throughout the colon and rectum progressed compared to prior. Lower lumbar spondylosis. Impression: 1. Decreased mildly dilated small bowel loops. 2. Progression of contrast into the colon and rectum compared to prior CT. Electronically signed by: Rene Everett DO (05/19/2020 10:44 AM) [id number] DICTATED and SIGNED BY: RENE EVERETT DO DATE: 05/19/20 1044 Laboratory Tests Test 05/20/20 06:00 White Blood Count 6.8 x10^3/uL (4.0-11.0) Red Blood Count 4.56 x10^6/uL (4.30-5.70) Hemoglobin 13.5 g/dL (13.0-17.5) Hematocrit 39.1 % (39.0-53.0) Mean Corpuscular Volume 86 fL (79-100) Mean Corpuscular Hemoglobin 30 pg (25-35) Mean Corpuscular Hemoglobin Concent 35 g/dL (31-37) Red Cell Distribution Width 14.2 % (11.5-14.5) Platelet Count 215 x10^3/uL (140-400) Neutrophils (%) (Auto) 56 % (31-73) Lymphocytes (%) (Auto) 30 % (24-48) Monocytes (%) (Auto) 11 % (0-9) Eosinophils (%) (Auto) 2 % (0-3) Basophils (%) (Auto) 1 % (0-3) Neutrophils # (Auto) 3.8 x10^3/uL (1.8-7.7) Lymphocytes # (Auto) 2.0 x10^3/uL (1.0-4.8) Monocytes # (Auto) 0.7 x10^3/uL (0.0-1.1) Eosinophils # (Auto) 0.1 x10^3/uL (0.0-0.7) Basophils # (Auto) 0.1 x10^3/uL (0.0-0.2) Comment Review of Relevant I have reviewed the following items jadyn (where applicable) has been applied. Labs Laboratory Tests Test 05/19/20 04:10 05/20/20 06:00 White Blood Count 9.8 x10^3/uL (4.0-11.0) 6.8 x10^3/uL (4.0-11.0) Red Blood Count 4.66 x10^6/uL (4.30-5.70) 4.56 x10^6/uL (4.30-5.70) Hemoglobin 14.0 g/dL (13.0-17.5) 13.5 g/dL (13.0-17.5) Hematocrit 39.9 % (39.0-53.0) 39.1 % (39.0-53.0) Mean Corpuscular Volume 86 fL (79-100) 86 fL (79-100) Mean Corpuscular Hemoglobin 30 pg (25-35) 30 pg (25-35) Mean Corpuscular Hemoglobin Concent 35 g/dL (31-37) 35 g/dL (31-37) Red Cell Distribution Width 14.5 % (11.5-14.5) 14.2 % (11.5-14.5) Platelet Count 226 x10^3/uL (140-400) 215 x10^3/uL (140-400) Neutrophils (%) (Auto) 60 % (31-73) 56 % (31-73) Lymphocytes (%) (Auto) 30 % (24-48) 30 % (24-48) Monocytes (%) (Auto) 9 % (0-9) 11 % (0-9) Eosinophils (%) (Auto) 1 % (0-3) 2 % (0-3) Basophils (%) (Auto) 1 % (0-3) 1 % (0-3) Neutrophils # (Auto) 5.8 x10^3/uL (1.8-7.7) 3.8 x10^3/uL (1.8-7.7) Lymphocytes # (Auto) 2.9 x10^3/uL (1.0-4.8) 2.0 x10^3/uL (1.0-4.8) Monocytes # (Auto) 0.8 x10^3/uL (0.0-1.1) 0.7 x10^3/uL (0.0-1.1) Eosinophils # (Auto) 0.1 x10^3/uL (0.0-0.7) 0.1 x10^3/uL (0.0-0.7) Basophils # (Auto) 0.1 x10^3/uL (0.0-0.2) 0.1 x10^3/uL (0.0-0.2) Sodium Level 140 mmol/L (136-145) Potassium Level 4.1 mmol/L (3.5-5.1) Chloride Level 105 mmol/L (98-107) Carbon Dioxide Level 24 mmol/L (21-32) Anion Gap 11 (6-14) Blood Urea Nitrogen 20 mg/dL (8-26) Creatinine 1.0 mg/dL (0.7-1.3) Estimated GFR (Cockcroft-Gault) 78.8 BUN/Creatinine Ratio 20 (6-20) Glucose Level 98 mg/dL (70-99) Calcium Level 8.3 mg/dL (8.5-10.1) Total Bilirubin 0.8 mg/dL (0.2-1.0) Aspartate Amino Transf (AST/SGOT) 272 U/L (15-37) Alanine Aminotransferase (ALT/SGPT) 165 U/L (16-63) Alkaline Phosphatase 66 U/L (46-116) Total Protein 6.6 g/dL (6.4-8.2) Albumin 3.3 g/dL (3.4-5.0) Albumin/Globulin Ratio 1.0 (1.0-1.7) Laboratory Tests Test 05/20/20 06:00 White Blood Count 6.8 x10^3/uL (4.0-11.0) Red Blood Count 4.56 x10^6/uL (4.30-5.70) Hemoglobin 13.5 g/dL (13.0-17.5) Hematocrit 39.1 % (39.0-53.0) Mean Corpuscular Volume 86 fL (79-100) Mean Corpuscular Hemoglobin 30 pg (25-35) Mean Corpuscular Hemoglobin Concent 35 g/dL (31-37) Red Cell Distribution Width 14.2 % (11.5-14.5) Platelet Count 215 x10^3/uL (140-400) Neutrophils (%) (Auto) 56 % (31-73) Lymphocytes (%) (Auto) 30 % (24-48) Monocytes (%) (Auto) 11 % (0-9) Eosinophils (%) (Auto) 2 % (0-3) Basophils (%) (Auto) 1 % (0-3) Neutrophils # (Auto) 3.8 x10^3/uL (1.8-7.7) Lymphocytes # (Auto) 2.0 x10^3/uL (1.0-4.8) Monocytes # (Auto) 0.7 x10^3/uL (0.0-1.1) Eosinophils # (Auto) 0.1 x10^3/uL (0.0-0.7) Basophils # (Auto) 0.1 x10^3/uL (0.0-0.2) Medications Current Medications Ondansetron HCl (Zofran) 4 mg PRN Q4HRS PRN IVP NAUSEA/VOMITING 1ST CHOICE; Start 05/18/20 at 23:15; Stop 05/20/20 at 08:55; Status DC Morphine Sulfate (Morphine Sulfate) 4 mg PRN Q2HR PRN IV SEVERE PAIN 7-10 Last administered on 05/19/20at 04:07; Start 05/18/20 at 23:15 Pantoprazole Sodium (PROTONIX VIAL for IV PUSH) 40 mg DAILYAC IVP Last administered on 05/19/20at 11:13; Start 05/19/20 at 10:00; Stop 05/20/20 at 10:14; Status DC Sodium Chloride (Normal Saline Flush) 3 ml QSHIFT PRN IV AFTER MEDS AND BLOOD DRAWS; Start 05/19/20 at 12:00 Sodium Chloride 1,000 ml @ 140 mls/hr Q7H9M IV Last administered on 05/20/20at 06:02; Start 05/19/20 at 11:46 Ondansetron HCl (Zofran) 4 mg PRN Q4HRS PRN IV NAUSEA/VOMITING; Start 05/19/20 at 12:00 Acetaminophen (Tylenol) 650 mg PRN Q4HRS PRN PO TEMP OVER 100.4F OR MILD PAIN; Start 05/19/20 at 12:00 Clonidine HCl (Catapres) 0.1 mg PRN Q6HRS PRN PO SBP>160 OR DBP>90; Start 05/06 01/23 at 12:00 Sodium Monofluorophosphate (Fleet Adult) 133 ml PRN DAILY PRN MI CONSTIPATION; Start 05/19/20 at 12:00 Albuterol Sulfate (Ventolin Neb Soln) 2.5 mg PRN Q4HRS PRN NEB SHORTNESS OF BREATH; Start 05/19/20 at 12:00 Guaifenesin (Robitussin) 200 mg PRN Q4HRS PRN PO COUGH; Start 05/19/20 at 12:00 Lorazepam (Ativan) 0.5 mg PRN Q4HRS PRN PO ANXIETY / AGITATION; Start 05/19/20 at 12:00 Enoxaparin Sodium (Lovenox 40mg Syringe) 40 mg BID SQ Last administered on 05/20/20at 09:24; Start 05/19/20 at 12:00 Lisinopril (Prinivil) 10 mg DAILY PO Last administered on 05/20/20at 09:30; Start 05/20/20 at 09:00 Losartan Potassium (Cozaar) 50 mg DAILY PO Last administered on 05/20/20at 09:29; Start 05/19/20 at 13:00 Metoprolol Succinate (Toprol Xl) 100 mg BID PO Last administered on 05/20/20at 09:28; Start 05/19/20 at 13:00 Potassium Chloride (Klor-Con) 10 meq DAILY PO Last administered on 05/20/20at 09:23; Start 05/19/20 at 13:00 Pantoprazole Sodium (Protonix) 40 mg DAILYAC PO ; Start 05/20/20 at 10:30 Active Scripts Active Reported Ibuprofen 800 Mg Tablet 800 Mg PO PRN TID PRN Prilosec Otc (Omeprazole Magnesium) 20 Mg Tablet.dr 1 Tab PO DAILY 30 Days Klor-Con 10 (Potassium Chloride) 10 Meq Tablet.er 1 Tab PO DAILY 30 Days Furosemide 20 Mg Tablet 10 Mg PO DAILY Metoprolol Succinate ( Xl ) (Metoprolol Succinate) 100 Mg Tab.er.24h 1 Tab PO BID Losartan Potassium 50 Mg Tablet 50 Mg PO DAILY Lisinopril 10 Mg Tablet 1 Tab PO DAILY Vitals/I & O Vital Sign - Last 24 Hours 05/19/20 05/19/20 05/19/20 05/19/20 11:18 12:24 12:25 15:00 Temp 98.1 97.8 98.1 97.8 Pulse 92 92 92 69 Resp 18 18 B/P (MAP) 130/74 (92) 130/74 130/74 119/72 (88) Pulse Ox 93 90 O2 Delivery Room Air Room Air 05/19/20 05/19/20 05/19/20 05/19/20 16:17 19:00 20:00 22:23 Temp 97.4 97.4 Pulse 72 72 Resp 18 B/P (MAP) 120/78 (92) 120/78 Pulse Ox 62 97 O2 Delivery Room Air Room Air 05/19/20 05/20/20 05/20/20 05/20/20 23:00 03:00 07:00 09:28 Temp 99.5 98.6 98.4 99.5 98.6 98.4 Pulse 65 70 63 78 Resp 16 16 16 B/P (MAP) 119/68 (85) 106/73 (84) 121/77 (92) 117/59 Pulse Ox 96 96 95 O2 Delivery Room Air 05/20/20 05/20/20 09:29 09:30 Pulse 78 78 B/P (MAP) 117/59 117/59 Intake and Output 05/19/20 05/19/20 05/20/20 15:00 23:00 07:00 Intake Total 240 ml 1600 ml 1360 ml Balance 240 ml 1600 ml 1360 ml Justicifation of Admission Dx: Justifications for Admission: Justification of Admission Dx: Yes ADRIAN BARLOW MD May 20, 2020 10:28
[2020-05-20 11:00] VITALS: BP 117/74
[2020-05-20 15:00] VITALS: BP 134/74
[2020-05-20] MEDS: PANTOPRAZOLE 40 MG TABLET.DR. PO SCH (15:33)
[2020-05-20 19:30] VITALS: BP 141/67
[2020-05-20 23:00] VITALS: BP 131/83
[2020-05-21 03:18] VITALS: BP 131/77
--- NOTE | 2020-05-21 03:44 | NUR ---
PT REMAIN ALERT AND ORIENT TIMES FOUR. NO COMPLAINTS., TALKED ON PHONE, WATCHED TELEVISION, DENIES PAIN, SOB, N/V, COUGH, AND DIAPHORESIS. SLEPT MOST OF THE SHIFT. SLOW PROGRESS TOWARDS DC GOALS, WILL CONTINUE TO MONITOR.
[2020-05-21 07:00] VITALS: BP 132/46
--- NOTE | 2020-05-21 07:42 | PDOC ---
SURGICAL PROGRESS NOTE DATE: 05/21/20 TIME: 07:41 Subjective Patient doing quite well this morning resting comfortably no nausea no vomiting tolerating diet Vital Signs Vital Signs Date Time Temp Pulse Resp B/P (MAP) Pulse Ox O2 Delivery O2 Flow Rate FiO2 05/21/20 03:18 97.9 57 18 131/77 (95) 95 Room Air 97.9 I&O Intake and Output 05/21/20 07:00 Intake Total 1440 ml Balance 1440 ml Intake Oral 1440 ml # Voids 7 PATIENT HAS A MOORE: No General: Alert, Oriented X3, Cooperative, No acute distress Abdomen: Normal bowel sounds, Soft, No tenderness Labs Laboratory Tests Test 05/19/20 20:15 05/20/20 06:00 Stool Campylobacter PCR Negative (NEGATIVE) Stool E. coli Shiga Toxins (PCR) Negative (NEGATIVE) Stool Salmonella PCR Negative (NEGATIVE) Stool Shigella PCR Negative (NEGATIVE) Clostridium difficile Toxin (PCR) Negative (NEGATIVE) White Blood Count 6.8 x10^3/uL (4.0-11.0) Red Blood Count 4.56 x10^6/uL (4.30-5.70) Hemoglobin 13.5 g/dL (13.0-17.5) Hematocrit 39.1 % (39.0-53.0) Mean Corpuscular Volume 86 fL (79-100) Mean Corpuscular Hemoglobin 30 pg (25-35) Mean Corpuscular Hemoglobin Concent 35 g/dL (31-37) Red Cell Distribution Width 14.2 % (11.5-14.5) Platelet Count 215 x10^3/uL (140-400) Neutrophils (%) (Auto) 56 % (31-73) Lymphocytes (%) (Auto) 30 % (24-48) Monocytes (%) (Auto) 11 % (0-9) Eosinophils (%) (Auto) 2 % (0-3) Basophils (%) (Auto) 1 % (0-3) Neutrophils # (Auto) 3.8 x10^3/uL (1.8-7.7) Lymphocytes # (Auto) 2.0 x10^3/uL (1.0-4.8) Monocytes # (Auto) 0.7 x10^3/uL (0.0-1.1) Eosinophils # (Auto) 0.1 x10^3/uL (0.0-0.7) Basophils # (Auto) 0.1 x10^3/uL (0.0-0.2) Assessment/Plan Small bowel obstruction appears to be resolved Ventral hernia, patient has a appointment with a surgeon to address as an outpatient Justicifation of Admission Dx: Justifications for Admission: Justification of Admission Dx: Yes ADRIAN SHARMA MD May 21, 2020 07:42
--- NOTE | 2020-05-21 07:44 | PDOC ---
SURGICAL PROGRESS NOTE DATE: 05/20/20 TIME: 08:43 Subjective Patient feeling much better this morning no nausea vomiting has had flatus and bowel movement Vital Signs Vital Signs Date Time Temp Pulse Resp B/P (MAP) Pulse Ox O2 Delivery O2 Flow Rate FiO2 05/21/20 03:18 97.9 57 18 131/77 (95) 95 Room Air 97.9 I&O Intake and Output 05/21/20 07:00 Intake Total 1440 ml Balance 1440 ml Intake Oral 1440 ml # Voids 7 PATIENT HAS A MOORE: No General: Alert, Oriented X3, Cooperative, mild distress Abdomen: Normal bowel sounds, Soft, No tenderness Labs Laboratory Tests Test 05/19/20 20:15 05/20/20 06:00 Stool Campylobacter PCR Negative (NEGATIVE) Stool E. coli Shiga Toxins (PCR) Negative (NEGATIVE) Stool Salmonella PCR Negative (NEGATIVE) Stool Shigella PCR Negative (NEGATIVE) Clostridium difficile Toxin (PCR) Negative (NEGATIVE) White Blood Count 6.8 x10^3/uL (4.0-11.0) Red Blood Count 4.56 x10^6/uL (4.30-5.70) Hemoglobin 13.5 g/dL (13.0-17.5) Hematocrit 39.1 % (39.0-53.0) Mean Corpuscular Volume 86 fL (79-100) Mean Corpuscular Hemoglobin 30 pg (25-35) Mean Corpuscular Hemoglobin Concent 35 g/dL (31-37) Red Cell Distribution Width 14.2 % (11.5-14.5) Platelet Count 215 x10^3/uL (140-400) Neutrophils (%) (Auto) 56 % (31-73) Lymphocytes (%) (Auto) 30 % (24-48) Monocytes (%) (Auto) 11 % (0-9) Eosinophils (%) (Auto) 2 % (0-3) Basophils (%) (Auto) 1 % (0-3) Neutrophils # (Auto) 3.8 x10^3/uL (1.8-7.7) Lymphocytes # (Auto) 2.0 x10^3/uL (1.0-4.8) Monocytes # (Auto) 0.7 x10^3/uL (0.0-1.1) Eosinophils # (Auto) 0.1 x10^3/uL (0.0-0.7) Basophils # (Auto) 0.1 x10^3/uL (0.0-0.2) Assessment/Plan Improving small bowel obstruction. Advance diet as tolerated. Recommend hernia repair electively patient states he has an appointment with a surgeon Justicifation of Admission Dx: Justifications for Admission: Justification of Admission Dx: Yes ADRIAN SHARMA MD May 21, 2020 07:44
[2020-05-21] MEDS: LOSARTAN POTASSIUM 50 MG TABLET. PO SCH (08:40)
[2020-05-21] MEDS: LISINOPRIL 10 MG TABLET PO SCH (08:41)
[2020-05-21] MEDS: POTASSIUM CHLORIDE 10 MEQ TABLET.ER. PO SCH (08:41)
[2020-05-21] MEDS: METOPROLOL SUCC 24HR ER 100 MG TAB.ER.24H. PO SCH ×2 (08:41→22:29)
[2020-05-21] MEDS: PANTOPRAZOLE 40 MG TABLET.DR. PO SCH (08:41)
[2020-05-21] MEDS: ENOXAPARIN 40 MG/0.4 ML SYRINGE. SQ SCH (08:42)
[2020-05-21 10:50] LABS: BASO # 0.1 x10^3/uL (0.0-0.2); BASO % 1 % (0-3); EOS # 0.1 x10^3/uL (0.0-0.7); EOS % 2 % (0-3); HEMATOCRIT 40.3 % (39.0-53.0); HEMOGLOBIN 14.2 g/dL (13.0-17.5); LYMPH # 1.6 x10^3/uL (1.0-4.8); LYMPH % 21 % (24-48); MEAN CORPUSCULAR HEMOGLOBIN 30 pg (25-35); MEAN CORPUSCULAR HGB CONC 35 g/dL (31-37); MEAN CORPUSCULAR VOLUME 86 fL (79-100); MONO # 0.7 x10^3/uL (0.0-1.1); MONO % 10 % (0-9); NEUT % 67 % (31-73); PLATELET COUNT 249 x10^3/uL (140-400); RED BLOOD COUNT 4.69 x10^6/uL (4.30-5.70); RED CELL DISTRIBUTION WIDTH 14.1 % (11.5-14.5); WHITE BLOOD COUNT 7.6 x10^3/uL (4.0-11.0)
--- NOTE | 2020-05-21 10:53 | PDOC ---
PROGRESS NOTES Date of Service: DATE: 05/21/20 TIME: 10:53 Chief Complaint Chief Complaint VTE Prophylaxis Ordered VTE Prophylaxis Devices: Yes VTE Pharmacological Prophylaxi: Yes Assessment/Plan Assessment/Plan IMPRESSION: 1. PARTIAL Acute small bowel obstruction 2. Hepatomegaly. 3. Prior cholecystectomy. 4. MORBID OBESITY 5. Decreased mildly dilated small bowel loops. KUB 05/19 6. Progression of contrast into the colon and rectum compared to prior CT. 05/19 7. PREVOIUS COLECTOMY FOR DIVERTICULITIS 8. EGD and colonoscopy <1 year ago @ [facility]. H/o diverticular disease s/p partial colectomy in [place]. S/p cholecystectomy for stones 9. HX HEP C 10. HYPERTENSION 11. HYPERLIPIDEMIA 12. ABDOMINAL WALL Hernias, present on admit plan admit adat IV FLUID SUPPORT Consult gen surgery consult GI DVT PROPHYLAXIS IV PROTONIX HOME MEDS hernia repair soon as out patient, has arranged 05/21 improving, surgery note reviewed, STILL A MILD AMT DISCOMFORT, has only eaten a few solids today d/w rn Justicifation of Admission Dx: Justicifation of Admission Dx: Justifications for Admission: Justification of Admission Dx: Yes Comments: partial small bowel obstruction History of Present Illness History of Present Illness Identification/Chief Complaint Chief Complaint direct admit from [facility] ER WITH PSBO SEEN ON CT, HAS FELT BETTER SINE AD LEXI, HAS BEEN NPO past hx colon resection for diverticulitis , [place] Past Medical History Past Medical History OBESITY Cardiovascular: HTN, Hyperlipidemia GI: Diverticulosis Psych: Addictions Infectious disease: No pertinent hx Past Surgical History Past Surgical History: Colectomy, Colon Resection Family History Family History: High Cholestrol, Hypertension Social History Smoke: Quit ALCOHOL: none Drugs: None Vitals Vitals Vital Signs Date Time Temp Pulse Resp B/P (MAP) Pulse Ox O2 Delivery O2 Flow Rate FiO2 05/21/20 08:41 57 131/77 05/21/20 07:00 97.7 20 94 Room Air 97.7 Physical Exam General: Alert, Oriented X3, Cooperative, mild distress Heart: Regular rate, Normal S1, Normal S2 Lungs: Clear Abdomen: Normal bowel sounds, Soft, No tenderness Extremities: No clubbing, No cyanosis, No edema Skin: No breakdown, No significant lesion Comment Review of Relevant I have reviewed the following items jadyn (where applicable) has been applied. Labs Laboratory Tests Test 05/19/20 20:15 05/20/20 06:00 Stool Campylobacter PCR Negative (NEGATIVE) Stool E. coli Shiga Toxins (PCR) Negative (NEGATIVE) Stool Salmonella PCR Negative (NEGATIVE) Stool Shigella PCR Negative (NEGATIVE) Clostridium difficile Toxin (PCR) Negative (NEGATIVE) White Blood Count 6.8 x10^3/uL (4.0-11.0) Red Blood Count 4.56 x10^6/uL (4.30-5.70) Hemoglobin 13.5 g/dL (13.0-17.5) Hematocrit 39.1 % (39.0-53.0) Mean Corpuscular Volume 86 fL (79-100) Mean Corpuscular Hemoglobin 30 pg (25-35) Mean Corpuscular Hemoglobin Concent 35 g/dL (31-37) Red Cell Distribution Width 14.2 % (11.5-14.5) Platelet Count 215 x10^3/uL (140-400) Neutrophils (%) (Auto) 56 % (31-73) Lymphocytes (%) (Auto) 30 % (24-48) Monocytes (%) (Auto) 11 % (0-9) Eosinophils (%) (Auto) 2 % (0-3) Basophils (%) (Auto) 1 % (0-3) Neutrophils # (Auto) 3.8 x10^3/uL (1.8-7.7) Lymphocytes # (Auto) 2.0 x10^3/uL (1.0-4.8) Monocytes # (Auto) 0.7 x10^3/uL (0.0-1.1) Eosinophils # (Auto) 0.1 x10^3/uL (0.0-0.7) Basophils # (Auto) 0.1 x10^3/uL (0.0-0.2) Medications Current Medications Ondansetron HCl (Zofran) 4 mg PRN Q4HRS PRN IVP NAUSEA/VOMITING 1ST CHOICE; Start 05/18/20 at 23:15; Stop 05/20/20 at 08:55; Status DC Morphine Sulfate (Morphine Sulfate) 4 mg PRN Q2HR PRN IV SEVERE PAIN 7-10 Last administered on 05/19/20at 04:07; Start 05/18/20 at 23:15 Pantoprazole Sodium (PROTONIX VIAL for IV PUSH) 40 mg DAILYAC IVP Last administered on 05/19/20at 11:13; Start 05/19/20 at 10:00; Stop 05/20/20 at 10:14; Status DC Sodium Chloride (Normal Saline Flush) 3 ml QSHIFT PRN IV AFTER MEDS AND BLOOD DRAWS; Start 05/19/20 at 12:00 Sodium Chloride 1,000 ml @ 140 mls/hr Q7H9M IV Last administered on 05/20/20at 06:02; Start 05/19/20 at 11:46; Stop 05/20/20 at 15:10; Status DC Ondansetron HCl (Zofran) 4 mg PRN Q4HRS PRN IV NAUSEA/VOMITING; Start 05/19/20 at 12:00 Acetaminophen (Tylenol) 650 mg PRN Q4HRS PRN PO TEMP OVER 100.4F OR MILD PAIN; Start 05/19/20 at 12:00 Clonidine HCl (Catapres) 0.1 mg PRN Q6HRS PRN PO SBP>160 OR DBP>90; Start 05/19/20 at 12:00 Sodium Monofluorophosphate (Fleet Adult) 133 ml PRN DAILY PRN [place] CONSTIPATION; Start 05/19/20 at 12:00 Albuterol Sulfate (Ventolin Neb Soln) 2.5 mg PRN Q4HRS PRN NEB SHORTNESS OF BREATH; Start 05/19/20 at 12:00 Guaifenesin (Robitussin) 200 mg PRN Q4HRS PRN PO COUGH; Start 05/19/20 at 12:00 Lorazepam (Ativan) 0.5 mg PRN Q4HRS PRN PO ANXIETY / AGITATION; Start 05/19/20 at 12:00 Enoxaparin Sodium (Lovenox 40mg Syringe) 40 mg BID SQ Last administered on 05/20/20at 09:24; Start 05/19/20 at 12:00; Stop 05/20/20 at 14:11; Status DC Lisinopril (Prinivil) 10 mg DAILY PO Last administered on 05/21/20at 08:41; Start 05/20/20 at 09:00 Losartan Potassium (Cozaar) 50 mg DAILY PO Last administered on 05/21/20at 08:40; Start 05/19/20 at 13:00 Metoprolol Succinate (Toprol Xl) 100 mg BID PO Last administered on 05/21/20at 08:41; Start 05/19/20 at 13:00 Potassium Chloride (Klor-Con) 10 meq DAILY PO Last administered on 05/21/20at 08:41; Start 05/19/20 at 13:00 Pantoprazole Sodium (Protonix) 40 mg DAILYAC PO Last administered on 05/21/20at 08:41; Start 05/20/20 at 10:30 Enoxaparin Sodium (Lovenox 40mg Syringe) 40 mg DAILY SQ Last administered on 05/21/20at 08:42; Start 05/21/20 at 09:00 Active Scripts Active Reported Ibuprofen 800 Mg Tablet 800 Mg PO PRN TID PRN Prilosec Otc (Omeprazole Magnesium) 20 Mg Tablet.dr 1 Tab PO DAILY 30 Days Klor-Con 10 (Potassium Chloride) 10 Meq Tablet.er 1 Tab PO DAILY 30 Days Furosemide 20 Mg Tablet 10 Mg PO DAILY Metoprolol Succinate ( Xl ) (Metoprolol Succinate) 100 Mg Tab.er.24h 1 Tab PO BID Losartan Potassium 50 Mg Tablet 50 Mg PO DAILY Lisinopril 10 Mg Tablet 1 Tab PO DAILY Vitals/I & O Vital Sign - Last 24 Hours 05/20/20 05/20/20 05/20/20 05/20/20 11:00 15:00 19:30 20:00 Temp 98.4 98.2 98.7 98.4 98.2 98.7 Pulse 61 68 82 Resp 18 18 22 B/P (MAP) 117/74 (88) 134/74 (94) 141/67 (91) Pulse Ox 98 94 98 O2 Delivery Room Air Room Air Room Air Room Air 05/20/20 05/20/20 05/21/20 05/21/20 21:30 23:00 03:18 07:00 Temp 98.6 97.9 97.7 98.6 97.9 97.7 Pulse 72 66 57 62 Resp 20 18 20 B/P (MAP) 147/62 131/83 (99) 131/77 (95) 132/46 (74) Pulse Ox 93 95 94 O2 Delivery Room Air Room Air Room Air 05/21/20 05/21/20 05/21/20 08:40 08:41 08:41 Pulse 57 57 57 B/P (MAP) 131/77 131/77 131/77 Intake and Output 05/20/20 05/20/20 05/21/20 14:59 22:59 06:59 Intake Total 480 ml 480 ml 480 ml Balance 480 ml 480 ml 480 ml Justicifation of Admission Dx: Justifications for Admission: Justification of Admission Dx: Yes ADRIAN BARLOW MD May 21, 2020 10:53
[2020-05-21 11:00] VITALS: BP 118/76
[2020-05-21 15:00] VITALS: BP 108/58
[2020-05-21 19:00] VITALS: BP 136/73
[2020-05-21 23:00] VITALS: BP 140/60
[2020-05-21 23:15] LABS: BILIRUBIN,URINE NEGATIVE (NEG); CLARITY,URINE CLEAR; COLOR,URINE YELLOW; NITRITE,URINE NEGATIVE (NEG); PROTEIN,URINE NEGATIVE (NEG-TRACE)
[2020-05-21 23:20] LABS: BACTERIA,URINE 0 /HPF (0-FEW); RBC,URINE 0 /HPF (0-2); WBC,URINE 0 /HPF (0-4)
[2020-05-22 04:33] VITALS: BP 136/79
[2020-05-22 06:29] LABS: BASO # 0.1 x10^3/uL (0.0-0.2); BASO % 1 % (0-3); EOS # 0.2 x10^3/uL (0.0-0.7); EOS % 3 % (0-3); HEMATOCRIT 39.2 % (39.0-53.0); HEMOGLOBIN 13.7 g/dL (13.0-17.5); LYMPH # 2.4 x10^3/uL (1.0-4.8); LYMPH % 27 % (24-48); MEAN CORPUSCULAR HEMOGLOBIN 30 pg (25-35); MEAN CORPUSCULAR HGB CONC 35 g/dL (31-37); MEAN CORPUSCULAR VOLUME 85 fL (79-100); MONO # 0.7 x10^3/uL (0.0-1.1); MONO % 8 % (0-9); NEUT # 5.3 x10^3/uL (1.8-7.7); NEUT % 61 % (31-73); PLATELET COUNT 239 x10^3/uL (140-400); RED CELL DISTRIBUTION WIDTH 14.6 % (11.5-14.5); WHITE BLOOD COUNT 8.7 x10^3/uL (4.0-11.0)
[2020-05-22 07:00] VITALS: BP 125/68
[2020-05-22] MEDS: ENOXAPARIN 40 MG/0.4 ML SYRINGE. SQ SCH (09:00)
--- NOTE | 2020-05-22 09:11 | PDOC ---
SURGICAL PROGRESS NOTE DATE: 05/22/20 TIME: 09:10 Subjective tolerating diet no n/v, no pain Vital Signs Vital Signs Date Time Temp Pulse Resp B/P (MAP) Pulse Ox O2 Delivery O2 Flow Rate FiO2 05/22/20 07:00 97.5 60 18 125/68 (87) 96 Room Air 97.5 I&O Intake and Output 05/22/20 07:00 Output Total 0 ml Balance 0 ml Output Urine Total 0 ml # Voids 1 General: Alert, Oriented X3, Cooperative Abdomen: Soft, No tenderness Labs Laboratory Tests Test 05/21/20 10:30 05/21/20 23:00 05/22/20 05:45 White Blood Count 7.6 x10^3/uL (4.0-11.0) 8.7 x10^3/uL (4.0-11.0) Red Blood Count 4.69 x10^6/uL (4.30-5.70) 4.60 x10^6/uL (4.30-5.70) Hemoglobin 14.2 g/dL (13.0-17.5) 13.7 g/dL (13.0-17.5) Hematocrit 40.3 % (39.0-53.0) 39.2 % (39.0-53.0) Mean Corpuscular Volume 86 fL (79-100) 85 fL (79-100) Mean Corpuscular Hemoglobin 30 pg (25-35) 30 pg (25-35) Mean Corpuscular Hemoglobin Concent 35 g/dL (31-37) 35 g/dL (31-37) Red Cell Distribution Width 14.1 % (11.5-14.5) 14.6 % (11.5-14.5) Platelet Count 249 x10^3/uL (140-400) 239 x10^3/uL (140-400) Neutrophils (%) (Auto) 67 % (31-73) 61 % (31-73) Lymphocytes (%) (Auto) 21 % (24-48) 27 % (24-48) Monocytes (%) (Auto) 10 % (0-9) 8 % (0-9) Eosinophils (%) (Auto) 2 % (0-3) 3 % (0-3) Basophils (%) (Auto) 1 % (0-3) 1 % (0-3) Neutrophils # (Auto) 5.0 x10^3/uL (1.8-7.7) 5.3 x10^3/uL (1.8-7.7) Lymphocytes # (Auto) 1.6 x10^3/uL (1.0-4.8) 2.4 x10^3/uL (1.0-4.8) Monocytes # (Auto) 0.7 x10^3/uL (0.0-1.1) 0.7 x10^3/uL (0.0-1.1) Eosinophils # (Auto) 0.1 x10^3/uL (0.0-0.7) 0.2 x10^3/uL (0.0-0.7) Basophils # (Auto) 0.1 x10^3/uL (0.0-0.2) 0.1 x10^3/uL (0.0-0.2) Urine Collection Type Unknown Urine Color Yellow Urine Clarity Clear Urine pH 6.0 (<5.0-8.0) Urine Specific [place] 1.010 (1.000-1.030) Urine Protein Negative mg/dL (NEG-TRACE) Urine Glucose (UA) Negative mg/dL (NEG) Urine Ketones (Stick) Negative mg/dL (NEG) Urine Blood Negative (NEG) Urine Nitrite Negative (NEG) Urine Bilirubin Negative (NEG) Urine Urobilinogen Dipstick 2.0 mg/dL (0.2 mg/dL) Urine Leukocyte Esterase Negative (NEG) Urine RBC 0 /HPF (0-2) Urine WBC 0 /HPF (0-4) Urine Bacteria 0 /HPF (0-FEW) Laboratory Tests Test 05/21/20 10:30 05/21/20 23:00 05/22/20 05:45 White Blood Count 7.6 x10^3/uL (4.0-11.0) 8.7 x10^3/uL (4.0-11.0) Red Blood Count 4.69 x10^6/uL (4.30-5.70) 4.60 x10^6/uL (4.30-5.70) Hemoglobin 14.2 g/dL (13.0-17.5) 13.7 g/dL (13.0-17.5) Hematocrit 40.3 % (39.0-53.0) 39.2 % (39.0-53.0) Mean Corpuscular Volume 86 fL (79-100) 85 fL (79-100) Mean Corpuscular Hemoglobin 30 pg (25-35) 30 pg (25-35) Mean Corpuscular Hemoglobin Concent 35 g/dL (31-37) 35 g/dL (31-37) Red Cell Distribution Width 14.1 % (11.5-14.5) 14.6 % (11.5-14.5) Platelet Count 249 x10^3/uL (140-400) 239 x10^3/uL (140-400) Neutrophils (%) (Auto) 67 % (31-73) 61 % (31-73) Lymphocytes (%) (Auto) 21 % (24-48) 27 % (24-48) Monocytes (%) (Auto) 10 % (0-9) 8 % (0-9) Eosinophils (%) (Auto) 2 % (0-3) 3 % (0-3) Basophils (%) (Auto) 1 % (0-3) 1 % (0-3) Neutrophils # (Auto) 5.0 x10^3/uL (1.8-7.7) 5.3 x10^3/uL (1.8-7.7) Lymphocytes # (Auto) 1.6 x10^3/uL (1.0-4.8) 2.4 x10^3/uL (1.0-4.8) Monocytes # (Auto) 0.7 x10^3/uL (0.0-1.1) 0.7 x10^3/uL (0.0-1.1) Eosinophils # (Auto) 0.1 x10^3/uL (0.0-0.7) 0.2 x10^3/uL (0.0-0.7) Basophils # (Auto) 0.1 x10^3/uL (0.0-0.2) 0.1 x10^3/uL (0.0-0.2) Urine Collection Type Unknown Urine Color Yellow Urine Clarity Clear Urine pH 6.0 (<5.0-8.0) Urine Specific [place] 1.010 (1.000-1.030) Urine Protein Negative mg/dL (NEG-TRACE) Urine Glucose (UA) Negative mg/dL (NEG) Urine Ketones (Stick) Negative mg/dL (NEG) Urine Blood Negative (NEG) Urine Nitrite Negative (NEG) Urine Bilirubin Negative (NEG) Urine Urobilinogen Dipstick 2.0 mg/dL (0.2 mg/dL) Urine Leukocyte Esterase Negative (NEG) Urine RBC 0 /HPF (0-2) Urine WBC 0 /HPF (0-4) Urine Bacteria 0 /HPF (0-FEW) Assessment/Plan ok from surgical pov to [place] home can FU in clinic for elective hernia eval Justicifation of Admission Dx: Justifications for Admission: Justification of Admission Dx: Yes MARAH HOBSON SENIOR RISK MANAGER May 22, 2020 09:11
--- NOTE | 2020-05-22 09:48 | PDOC ---
[employer] PROGRESS NOTE Date of Service DOS: DATE: 05/22/20 TIME: 09:48 Chief Complaint Chief Complaint A/P: PARTIAL Acute small bowel obstruction Hepatomegaly. MORBID OBESITY Decreased mildly dilated small bowel loops. KUB 05/19 Progression of contrast into the colon and rectum compared to prior CT. 05/19 Recurrent abd pain w/ vomiting and diarrhea - better, stool tests neg. Abnormal CT - partial SBO, hernias w/ loops of bowel - elective follow-up per surgery H/o partial colectomy and cholecystectomy EGD and colonoscopy <1 year ago @ [facility]. H/o diverticular disease s/p partial colectomy [place]. S/p cholecystectomy for stones HX HEP C HYPERTENSION HYPERLIPIDEMIA ABDOMINAL WALL Hernias, present on admit plan admit adat IV FLUID SUPPORT Consult gen surgery consult GI DVT PROPHYLAXIS IV PROTONIX HOME MEDS hernia repair soon as out patient, has arranged 05/21 improving, surgery note reviewed, STILL A MILD AMT DISCOMFORT, has only eaten a few solids today d/w rn History of Present Illness History of Present Illness Mr Jensen is a 49 yo M w/ PMHx HTN, HLD, diverticulossi s/p colon resection who is a direct admit from [facility] ER WITH Partial SBO SEEN ON CT, HAS FELT BETTER SINCE ADMIT, HAS BEEN NPO. Seen by GI and General surgery in consultatoin. [place] improved with relief of his obstruction with NPO status, started passing flatus and having BM after 4 days, took PO well without pain. Seen bedside, asking to go home. Pain nearly resolved. No CP or SOB. Afebrile. Discussed findings of fatty liver, he is aware. Vitals/I&O Vitals/I&O: Vital Signs Date Time Temp Pulse Resp B/P (MAP) Pulse Ox O2 Delivery O2 Flow Rate FiO2 05/22/20 07:00 97.5 60 18 125/68 (87) 96 Room Air 97.5 I & O 05/21/20 05/21/20 05/22/20 15:00 23:00 07:00 Output Total 0 ml Balance 0 ml Physical Exam General: Alert, Oriented X3, Cooperative Heart: Regular rate, Normal S1, Normal S2 Lungs: Clear Abdomen: Soft, No tenderness Extremities: No clubbing, No cyanosis, No edema Skin: No breakdown, No significant lesion Labs Labs: Laboratory Tests Test 05/21/20 10:30 05/21/20 23:00 05/22/20 05:45 White Blood Count 7.6 x10^3/uL (4.0-11.0) 8.7 x10^3/uL (4.0-11.0) Red Blood Count 4.69 x10^6/uL (4.30-5.70) 4.60 x10^6/uL (4.30-5.70) Hemoglobin 14.2 g/dL (13.0-17.5) 13.7 g/dL (13.0-17.5) Hematocrit 40.3 % (39.0-53.0) 39.2 % (39.0-53.0) Mean Corpuscular Volume 86 fL (79-100) 85 fL (79-100) Mean Corpuscular Hemoglobin 30 pg (25-35) 30 pg (25-35) Mean Corpuscular Hemoglobin Concent 35 g/dL (31-37) 35 g/dL (31-37) Red Cell Distribution Width 14.1 % (11.5-14.5) 14.6 % (11.5-14.5) Platelet Count 249 x10^3/uL (140-400) 239 x10^3/uL (140-400) Neutrophils (%) (Auto) 67 % (31-73) 61 % (31-73) Lymphocytes (%) (Auto) 21 % (24-48) 27 % (24-48) Monocytes (%) (Auto) 10 % (0-9) 8 % (0-9) Eosinophils (%) (Auto) 2 % (0-3) 3 % (0-3) Basophils (%) (Auto) 1 % (0-3) 1 % (0-3) Neutrophils # (Auto) 5.0 x10^3/uL (1.8-7.7) 5.3 x10^3/uL (1.8-7.7) Lymphocytes # (Auto) 1.6 x10^3/uL (1.0-4.8) 2.4 x10^3/uL (1.0-4.8) Monocytes # (Auto) 0.7 x10^3/uL (0.0-1.1) 0.7 x10^3/uL (0.0-1.1) Eosinophils # (Auto) 0.1 x10^3/uL (0.0-0.7) 0.2 x10^3/uL (0.0-0.7) Basophils # (Auto) 0.1 x10^3/uL (0.0-0.2) 0.1 x10^3/uL (0.0-0.2) Urine Collection Type Unknown Urine Color Yellow Urine Clarity Clear Urine pH 6.0 (<5.0-8.0) Urine Specific [place] 1.010 (1.000-1.030) Urine Protein Negative mg/dL (NEG-TRACE) Urine Glucose (UA) Negative mg/dL (NEG) Urine Ketones (Stick) Negative mg/dL (NEG) Urine Blood Negative (NEG) Urine Nitrite Negative (NEG) Urine Bilirubin Negative (NEG) Urine Urobilinogen Dipstick 2.0 mg/dL (0.2 mg/dL) Urine Leukocyte Esterase Negative (NEG) Urine RBC 0 /HPF (0-2) Urine WBC 0 /HPF (0-4) Urine Bacteria 0 /HPF (0-FEW) Comment Review of Relevant I have reviewed the following items jadyn (where applicable) has been applied. Justicifation of Admission Dx: Justifications for Admission: Justification of Admission Dx: Yes MARYSE MOSQUERA MD May 22, 2020 09:48
[2020-05-22] MEDS: METOPROLOL SUCC 24HR ER 100 MG TAB.ER.24H. PO SCH (10:05)
[2020-05-22] MEDS: LOSARTAN POTASSIUM 50 MG TABLET. PO SCH (10:06)
[2020-05-22] MEDS: LISINOPRIL 10 MG TABLET PO SCH (10:06)
[2020-05-22] MEDS: POTASSIUM CHLORIDE 10 MEQ TABLET.ER. PO SCH (10:06)
[2020-05-22] MEDS: PANTOPRAZOLE 40 MG TABLET.DR. PO SCH (10:07)
--- NOTE | 2020-05-22 10:15 | NUR ---
SW following. Discussed with RN, pt ready to discharge. RN received a call later on Friday from [facility] stating they actually do not require a COVID test. RN advised no SW needs, anticipate discharge home today.
--- NOTE | 2020-05-22 10:44 | NUR ---
lovenox nonadmin today as pt will be discharging and does not want the injection.
[2020-05-22 11:00] VITALS: BP 126/52
[2020-05-22] MEDS ORDERED: PANT40TA77 PO (11:42)
--- NOTE | 2020-05-22 12:16 | PDOC ---
Date of Service: DATE: 05/22/20 TIME: 12:11 Subjective: Subjective: Feels better, ready to discharge. Objective: Vital Signs: Vital Signs Date Time Temp Pulse Resp B/P (MAP) Pulse Ox O2 Delivery O2 Flow Rate FiO2 05/22/20 11:00 97.5 48 18 126/52 (76) 91 Room Air 97.5 Labs: Laboratory Tests Test 05/21/20 23:00 05/22/20 05:45 Urine Collection Type Unknown Urine Color Yellow Urine Clarity Clear Urine pH 6.0 Urine Specific [place] 1.010 Urine Protein Negative mg/dL Urine Glucose (UA) Negative mg/dL Urine Ketones (Stick) Negative mg/dL Urine Blood Negative Urine Nitrite Negative Urine Bilirubin Negative Urine Urobilinogen Dipstick 2.0 mg/dL Urine Leukocyte Esterase Negative Urine RBC 0 /HPF Urine WBC 0 /HPF Urine Bacteria 0 /HPF White Blood Count 8.7 x10^3/uL Red Blood Count 4.60 x10^6/uL Hemoglobin 13.7 g/dL Hematocrit 39.2 % Mean Corpuscular Volume 85 fL Mean Corpuscular Hemoglobin 30 pg Mean Corpuscular Hemoglobin Concent 35 g/dL Red Cell Distribution Width 14.6 % Platelet Count 239 x10^3/uL Neutrophils (%) (Auto) 61 % Lymphocytes (%) (Auto) 27 % Monocytes (%) (Auto) 8 % Eosinophils (%) (Auto) 3 % Basophils (%) (Auto) 1 % Neutrophils # (Auto) 5.3 x10^3/uL Lymphocytes # (Auto) 2.4 x10^3/uL Monocytes # (Auto) 0.7 x10^3/uL Eosinophils # (Auto) 0.2 x10^3/uL Basophils # (Auto) 0.1 x10^3/uL Imaging: Abd US IMPRESSION: 1. Hepatomegaly. 2. Prior cholecystectomy. PE: GEN: NAD, dressed to leave LUNGS: CTAB HEART: RRR ABD: periumbilical hernia NEURO/PSYCH: A & O 3 A/P: Recurrent abd pain w/ vomiting and diarrhea - better, stool tests neg. Abnormal CT - partial SBO, hernias w/ loops of bowel - elective follow-up per surgery H/o partial colectomy and cholecystectomy -- DC per primary, plans as above. Justicifation of Admission Dx: Justifications for Admission: Justification of Admission Dx: Yes VALENCIA KOEHLER May 22, 2020 12:16
--- NOTE | 2020-05-22 12:52 | NUR ---
patient discharged back to [facility]. meds and follow up reviewed. pt had no IV access at time of discharge. pt stable upon dc.
--- NOTE | 2020-05-22 23:13 | PDOC3 ---
Discharge Summary Visit Information Date of Admission: May 18, 2020 Date of Discharge: May 22, 2020 Admitting Diagnosis: Small bowel obstruction Final Diagnosis Small bowel obstruction Brief Hospital Course Allergies Allergies Coded Allergies Type Severity Reaction Last Updated Verified No Known Medication Allergies Allergy Unknown 05/18/20 Yes Vital Signs Vital Signs Date Time Temp Pulse Resp B/P (MAP) Pulse Ox O2 Delivery O2 Flow Rate FiO2 05/22/20 11:00 97.5 48 18 126/52 (76) 91 Room Air 97.5 Lab Results Laboratory Tests Test 05/21/20 10:30 05/21/20 23:00 05/22/20 05:45 White Blood Count 7.6 x10^3/uL (4.0-11.0) 8.7 x10^3/uL (4.0-11.0) Red Blood Count 4.69 x10^6/uL (4.30-5.70) 4.60 x10^6/uL (4.30-5.70) Hemoglobin 14.2 g/dL (13.0-17.5) 13.7 g/dL (13.0-17.5) Hematocrit 40.3 % (39.0-53.0) 39.2 % (39.0-53.0) Mean Corpuscular Volume 86 fL (79-100) 85 fL (79-100) Mean Corpuscular Hemoglobin 30 pg (25-35) 30 pg (25-35) Mean Corpuscular Hemoglobin Concent 35 g/dL (31-37) 35 g/dL (31-37) Red Cell Distribution Width 14.1 % (11.5-14.5) 14.6 % (11.5-14.5) Platelet Count 249 x10^3/uL (140-400) 239 x10^3/uL (140-400) Neutrophils (%) (Auto) 67 % (31-73) 61 % (31-73) Lymphocytes (%) (Auto) 21 % (24-48) 27 % (24-48) Monocytes (%) (Auto) 10 % (0-9) 8 % (0-9) Eosinophils (%) (Auto) 2 % (0-3) 3 % (0-3) Basophils (%) (Auto) 1 % (0-3) 1 % (0-3) Neutrophils # (Auto) 5.0 x10^3/uL (1.8-7.7) 5.3 x10^3/uL (1.8-7.7) Lymphocytes # (Auto) 1.6 x10^3/uL (1.0-4.8) 2.4 x10^3/uL (1.0-4.8) Monocytes # (Auto) 0.7 x10^3/uL (0.0-1.1) 0.7 x10^3/uL (0.0-1.1) Eosinophils # (Auto) 0.1 x10^3/uL (0.0-0.7) 0.2 x10^3/uL (0.0-0.7) Basophils # (Auto) 0.1 x10^3/uL (0.0-0.2) 0.1 x10^3/uL (0.0-0.2) Urine Collection Type Unknown Urine Color Yellow Urine Clarity Clear Urine pH 6.0 (<5.0-8.0) Urine Specific [place] 1.010 (1.000-1.030) Urine Protein Negative mg/dL (NEG-TRACE) Urine Glucose (UA) Negative mg/dL (NEG) Urine Ketones (Stick) Negative mg/dL (NEG) Urine Blood Negative (NEG) Urine Nitrite Negative (NEG) Urine Bilirubin Negative (NEG) Urine Urobilinogen Dipstick 2.0 mg/dL (0.2 mg/dL) Urine Leukocyte Esterase Negative (NEG) Urine RBC 0 /HPF (0-2) Urine WBC 0 /HPF (0-4) Urine Bacteria 0 /HPF (0-FEW) Laboratory Tests Test 05/22/20 05:45 White Blood Count 8.7 x10^3/uL (4.0-11.0) Red Blood Count 4.60 x10^6/uL (4.30-5.70) Hemoglobin 13.7 g/dL (13.0-17.5) Hematocrit 39.2 % (39.0-53.0) Mean Corpuscular Volume 85 fL (79-100) Mean Corpuscular Hemoglobin 30 pg (25-35) Mean Corpuscular Hemoglobin Concent 35 g/dL (31-37) Red Cell Distribution Width 14.6 % (11.5-14.5) Platelet Count 239 x10^3/uL (140-400) Neutrophils (%) (Auto) 61 % (31-73) Lymphocytes (%) (Auto) 27 % (24-48) Monocytes (%) (Auto) 8 % (0-9) Eosinophils (%) (Auto) 3 % (0-3) Basophils (%) (Auto) 1 % (0-3) Neutrophils # (Auto) 5.3 x10^3/uL (1.8-7.7) Lymphocytes # (Auto) 2.4 x10^3/uL (1.0-4.8) Monocytes # (Auto) 0.7 x10^3/uL (0.0-1.1) Eosinophils # (Auto) 0.2 x10^3/uL (0.0-0.7) Basophils # (Auto) 0.1 x10^3/uL (0.0-0.2) Brief Hospital Course Mr Jensen is a 49 yo M w/ PMHx HTN, HLD, diverticulossi s/p colon resection who is a direct admit from [facility] ER WITH Partial SBO SEEN ON CT, HAS FELT BETTER SINCE ADMIT, NPO. Seen by GI and General surgery in consultatoin. 05/21 improving, surgery note reviewed, STILL A MILD AMT DISCOMFORT, has only eaten a few solids today [place] improved with relief of his obstruction with NPO status, started passing flatus and having BM after 4 days, took PO well without pain. Seen bedside, asking to go home. Pain nearly resolved. No CP or SOB. Afebrile. Discussed findings of fatty liver, he is aware. Problem list: PARTIAL Acute small bowel obstruction Hepatomegaly. MORBID OBESITY Decreased mildly dilated small bowel loops. KUB 05/19 Progression of contrast into the colon and rectum compared to prior CT. 05/19 Recurrent abd pain w/ vomiting and diarrhea - better, stool tests neg. Abnormal CT - partial SBO, hernias w/ loops of bowel - elective follow-up per surgery H/o partial colectomy and cholecystectomy EGD and colonoscopy <1 year ago @ [facility]. H/o diverticular disease s/p partial colectomy in [place]. S/p cholecystectomy for stones HX HEP C HYPERTENSION HYPERLIPIDEMIA ABDOMINAL WALL Hernias, present on admit plan Protonix script hernia repair soon as out patient, has arranged Greater than 30 minutes spent on d/c home Discharge Information Condition at Discharge: Improved Follow Up: Weeks (1) Disposition/Orders: D/C to Home Scheduled Lisinopril (Lisinopril) 10 Mg Tablet, 1 TAB PO DAILY for hypertension, #30 Ref 5 (Reported) Entered as Reported by: GLENDA MCKEON on 05/19/20249 Last Taken: Unknown Dose on 05/18/20899 Last Action: Continued on 05/19/201154 by ADRIAN BARLOW MD Losartan Potassium (Losartan Potassium) 50 Mg Tablet, 50 MG PO DAILY for HYPERTENSION, (Reported) Entered as Reported by: GLENDA MCKEON on 05/19/20249 Last Taken: Unknown Dose on 05/18/20899 Last Action: Continued on 05/19/201154 by ADRIAN BARLOW MD Metoprolol Succinate (Metoprolol Succinate ( Xl )) 100 Mg Tab.er.24h, 1 TAB PO BID for hypertension, #30 Ref 5 (Reported) Entered as Reported by: GLENDA MCKEON on 05/19/20249 Last Taken: Unknown Dose on 05/18/20899 Last Action: Continued on 05/19/201154 by ADRIAN BARLOW MD Pantoprazole Sodium (Pantoprazole Sodium ) 40 Mg Tablet.dr, 40 MG PO DAILYAC for GERD for 90 Days, #90 Prescribed by: MARYSE MOSQUERA MD on 05/22/20 1142 Potassium Chloride (Klor-Con 10) 10 Meq Tablet.er, 1 TAB PO DAILY for supplement for 30 Days, #30 Ref 0 (Reported) Entered as Reported by: GLENDA MCKEON on 05/19/20249 Last Taken: Unknown Dose on 05/18/20899 Last Action: Continued on 05/19/201154 by ADRIAN BARLOW MD Scheduled PRN Ibuprofen (Ibuprofen) 800 Mg Tablet, 800 MG PO PRN TID PRN for INFLAMMATION, (Reported) Entered as Reported by: GLEDNA MCKEON on 05/19/20249 Last Taken: Unknown Dose on 05/18/20899 Last Action: HELD on 05/19/201154 by ADRIAN BARLOW MD Discontinued Medications Furosemide (Furosemide) 20 Mg Tablet, 10 MG PO DAILY for edema, (Reported) Entered as Reported by: GLENDA MCKEON on 05/19/20249 Last Taken: Unknown Dose on 05/18/20899 Last Action: HELD on 05/19/201154 by ADRIAN BARLOW MD Omeprazole Magnesium (Prilosec Otc) 20 Mg Tablet.dr, 1 TAB PO DAILY for GERD for 30 Days, #30 Ref 0 (Reported) Entered as Reported by: GLENDA MCKEON on 05/19/20249 Last Taken: Unknown Dose on 05/18/20899 Last Action: HELD on 05/19/201154 by ADRIAN BARLOW MD Justicifation of Admission Dx: Justifications for Admission: Justification of Admission Dx: Yes MARYSE MOSQUERA MD May 22, 2020 23:13
== END 2020-05-22 12:30 | disposition home or self-care (01) | DRG 390 ==
LOC: 5 NORTH 20:10
PROVIDERS: ADMIT Internal Medicine; ATTEND Internal Medicine
DX: K56.600 Partial intestinal obstruction, unspecified as to cause (principal); K21.9 Gastro-esophageal reflux disease without esophagitis; R16.0 Hepatomegaly, not elsewhere classified; E66.01 Morbid (severe) obesity due to excess calories; Z68.39 Body mass index [BMI] 39.0-39.9, adult; I10 Essential (primary) hypertension; E78.5 Hyperlipidemia, unspecified; K43.9 Ventral hernia without obstruction or gangrene; M47.816 Spondylosis without myelopathy or radiculopathy, lumbar region; Z96.611 Presence of right artificial shoulder joint; Z93.3 Colostomy status; Z86.14 Personal history of Methicillin resistant Staphylococcus aureus infection; Z90.49 Acquired absence of other specified parts of digestive tract; Z82.49 Family history of ischemic heart disease and other diseases of the circulatory system
CPT/HCPCS: 36415; 74022; 76700; 80053; 81001; 85025; 87493; 87505; 94760; C9113; J1650; J2270; J7030; G0378

== ENCOUNTER 2020-10-03 01:53 | Inpatient (IN) | payer OTHER ==
[~2020-10-03] VITALS: Ht 175.3 cm; Wt 108.8 kg
[~2020-10-03 01:53] MED LIST: FURO20TA3 PO; IBUP-1060 PO; LISI10TA16 PO; LOSA-73 PO; METO-247 PO; OMEP20TA63 PO; PANT40TA77 PO; POTA10TA12 PO
[2020-10-03 03:00] VITALS: BP 122/88
[2020-10-03] MEDS ORDERED: ONDANSETRON PF 4 MG/2 ML VIAL. IVP PRN (03:15)
[2020-10-03] MEDS: fentaNYL PF VIAL 100 MCG/2 ML VIAL IVP PRN ×3 (03:28→13:40)
[2020-10-03] MEDS: IV NORMAL SALINE 1000ML BAG 1,000 ML IV SCH ×2 (03:28→16:44)
[2020-10-03 07:00] VITALS: BP 156/86
[2020-10-03 08:15] LABS: BASO # 0.1 x10^3/uL (0.0-0.2); BASO % 1 % (0-3); EOS # 0.2 x10^3/uL (0.0-0.7); EOS % 2 % (0-3); HEMATOCRIT 41.4 % (39.0-53.0); HEMOGLOBIN 14.4 g/dL (13.0-17.5); LYMPH # 1.7 x10^3/uL (1.0-4.8); LYMPH % 22 % (24-48); MEAN CORPUSCULAR HEMOGLOBIN 30 pg (25-35); MEAN CORPUSCULAR HGB CONC 35 g/dL (31-37); MEAN CORPUSCULAR VOLUME 85 fL (79-100); MONO # 0.7 x10^3/uL (0.0-1.1); MONO % 9 % (0-9); NEUT % 66 % (31-73); PLATELET COUNT 237 x10^3/uL (140-400); RED BLOOD COUNT 4.85 x10^6/uL (4.30-5.70); RED CELL DISTRIBUTION WIDTH 13.9 % (11.5-14.5); WHITE BLOOD COUNT 7.6 x10^3/uL (4.0-11.0)
--- NOTE | 2020-10-03 08:50 | PDOC2 ---
CONSULT Date of Consult Date of Consult DATE: 10/03/20 TIME: 08:47 Reason for Consult Reason for Consult: Incarcerated ventral incisional hernia Referring Physician Referring Physician: Pita Identification/Chief Complaint Chief Complaint Abdominal pain Source Source: Chart review, Patient History of Present Illness Reason for Visit: 49-year-old male with a known incisional ventral hernia developed worsening pain yesterday with nausea and an episode of vomiting was seen in the emergency department [place] CT scan was done which showed incarcerated small bowel within the ventral hernia with some obstructive appearance symptoms. This morning is resting comfortably in bed states that the bulge has receded having less discomfort no nausea Past Medical History Cardiovascular: HTN, Hyperlipidemia Pulmonary: Bronchitis GI: Diverticulosis Psych: Addictions Infectious disease: No pertinent hx Past Surgical History Past Surgical History: Colectomy, Colon Resection Family History Family History: High Cholestrol, Hypertension Social History ALCOHOL: none Drugs: None Current Medications Current Medications Current Medications Sodium Chloride 1,000 ml @ 75 mls/hr [id number] IV Last administered on 10/03/20at 03:28; Start 10/03/20 at 03:15 Fentanyl Citrate (Fentanyl 2ml Vial) 25 mcg PRN Q2HR PRN IVP PAIN Last administered on 10/03/20at 03:28; Start 10/03/20 at 03:15 Ondansetron HCl (Zofran) 4 mg PRN Q6HRS PRN IVP NAUSEA/VOMITING; Start 10/03/20 at 03:15 Active Scripts Active Pantoprazole Sodium (Pantoprazole Sodium) 40 Mg Tablet.dr 40 Mg PO DAILYAC 90 Days Reported Ibuprofen 800 Mg Tablet 800 Mg PO PRN TID PRN Klor-Con 10 (Potassium Chloride) 10 Meq Tablet.er 1 Tab PO DAILY 30 Days Metoprolol Succinate ( Xl ) (Metoprolol Succinate) 100 Mg Tab.er.24h 1 Tab PO BID Losartan Potassium 50 Mg Tablet 50 Mg PO DAILY Lisinopril 10 Mg Tablet 1 Tab PO DAILY Allergies Allergies: Coded Allergies: No Known Medication Allergies (Verified Allergy, Unknown, 05/18/20) ROS Gastrointestinal: Yes Nausea, Yes Abdominal Pain Physical Exam General: Alert, Oriented X3, Cooperative, mild distress HEENT: Atraumatic, EOMI Lungs: Clear to auscultation, Normal air movement Heart: Regular rate, No murmurs Abdomen: Normal bowel sounds, Soft, Other (Mildly tender at the umbilicus abdomen is soft no palpable bulge) Extremities: No edema Skin: No significant lesion Neuro: Normal speech Psych/Mental Status: Mental status NL Vitals VITALS Vital Signs Date Time Temp Pulse Resp B/P (MAP) Pulse Ox O2 Delivery O2 Flow Rate FiO2 10/03/20 07:00 97.4 85 17 156/86 (109) 94 Room Air 97.4 Labs Labs Laboratory Tests Test 10/03/20 04:20 10/03/20 07:00 SARS-CoV-2 Antigen (Rapid) Negative (NEGATIVE) White Blood Count 7.6 x10^3/uL (4.0-11.0) Red Blood Count 4.85 x10^6/uL (4.30-5.70) Hemoglobin 14.4 g/dL (13.0-17.5) Hematocrit 41.4 % (39.0-53.0) Mean Corpuscular Volume 85 fL (79-100) Mean Corpuscular Hemoglobin 30 pg (25-35) Mean Corpuscular Hemoglobin Concent 35 g/dL (31-37) Red Cell Distribution Width 13.9 % (11.5-14.5) Platelet Count 237 x10^3/uL (140-400) Neutrophils (%) (Auto) 66 % (31-73) Lymphocytes (%) (Auto) 22 % (24-48) Monocytes (%) (Auto) 9 % (0-9) Eosinophils (%) (Auto) 2 % (0-3) Basophils (%) (Auto) 1 % (0-3) Neutrophils # (Auto) 5.0 x10^3/uL (1.8-7.7) Lymphocytes # (Auto) 1.7 x10^3/uL (1.0-4.8) Monocytes # (Auto) 0.7 x10^3/uL (0.0-1.1) Eosinophils # (Auto) 0.2 x10^3/uL (0.0-0.7) Basophils # (Auto) 0.1 x10^3/uL (0.0-0.2) Laboratory Tests Test 10/03/20 04:20 10/03/20 07:00 SARS-CoV-2 Antigen (Rapid) Negative (NEGATIVE) White Blood Count 7.6 x10^3/uL (4.0-11.0) Red Blood Count 4.85 x10^6/uL (4.30-5.70) Hemoglobin 14.4 g/dL (13.0-17.5) Hematocrit 41.4 % (39.0-53.0) Mean Corpuscular Volume 85 fL (79-100) Mean Corpuscular Hemoglobin 30 pg (25-35) Mean Corpuscular Hemoglobin Concent 35 g/dL (31-37) Red Cell Distribution Width 13.9 % (11.5-14.5) Platelet Count 237 x10^3/uL (140-400) Neutrophils (%) (Auto) 66 % (31-73) Lymphocytes (%) (Auto) 22 % (24-48) Monocytes (%) (Auto) 9 % (0-9) Eosinophils (%) (Auto) 2 % (0-3) Basophils (%) (Auto) 1 % (0-3) Neutrophils # (Auto) 5.0 x10^3/uL (1.8-7.7) Lymphocytes # (Auto) 1.7 x10^3/uL (1.0-4.8) Monocytes # (Auto) 0.7 x10^3/uL (0.0-1.1) Eosinophils # (Auto) 0.2 x10^3/uL (0.0-0.7) Basophils # (Auto) 0.1 x10^3/uL (0.0-0.2) Images Images CT as in the history of present illness Assessment/Plan Assessment/Plan Incarcerated ventral hernia resolved obstructive symptoms plan on repair tomorrow ADRIAN Araujo MD Oct 03, 2020 08:49
[2020-10-03 08:56] LABS: ALBUMIN 3.4 g/dL (3.4-5.0); ALBUMIN/GLOBULIN RATIO 1.1 (1.0-1.7); CALCIUM 8.3 mg/dL (8.5-10.1); CREATININE 0.6 mg/dL (0.7-1.3); TOTAL BILIRUBIN 0.8 mg/dL (0.2-1.0); TOTAL PROTEIN 6.4 g/dL (6.4-8.2)
[2020-10-03 08:57] LABS: POTASSIUM 3.6 mmol/L (3.5-5.1)
--- NOTE | 2020-10-03 09:21 | NUR ---
SW following. Discussed with RN, pt from [facility], room air, NPO, rapid COVID-19 negative. Plan for procedure tomorrow morning (10/04/2020). SW will continue to follow.
--- NOTE | 2020-10-03 10:35 | HP ---
ADMIT DATE: 10/03/2020 CHIEF COMPLAINT: Abdominal pain. HISTORY OF PRESENT ILLNESS: The patient is a pleasant 49-year-old male who presented to the ER at [facility] [place] with abdominal pain. They did some scanning, it is showing an incarcerated hernia, accepted the patient's transfer, he is going to surgery today. PAST MEDICAL HISTORY: Diabetes, hypertension, hyperlipidemia, arthritis, GERD. ALLERGIES: None. FAMILY HISTORY: Diabetes. SOCIAL HISTORY: Does not drink, smoke or take drugs. He is a certified welder. MEDICATIONS: Reviewed, please refer to the MRAD. REVIEW OF SYSTEMS: GENERAL: No history of weight change, weakness or fevers. SKIN: No bruising, hair changes or rashes. EYES: No blurred, double or loss of vision. NOSE AND THROAT: No history of nosebleeds, hoarseness or sore throat. HEART: No history of palpitations, chest pain or shortness of breath on exertion. LUNGS: Denies cough, hemoptysis, wheezing or shortness of breath. GASTROINTESTINAL: The patient complains of abdominal pain. GENITOURINARY: No history of frequency, urgency, hesitancy or nocturia. NEUROLOGIC: Denies history of numbness, tingling, tremor or weakness. PSYCHIATRIC: No history of panic, anxiety or depression. ENDOCRINE: No history of heat or cold intolerance, polyuria or polydipsia. EXTREMITIES: Denies muscle weakness, joint pain, pain on walking or stiffness. PHYSICAL EXAMINATION: VITALS: Within normal limits and are stable. GENERAL: He is weak. HEENT: He has an NG to suction. EYES: Extraocular muscles are intact, pupils are equally round and reactive to light and accommodation MUSCULOSKELETAL: Well developed, well nourished, good range of motion ENDOCRINE: No thyromegaly was palpated LYMPHATICS: No cervical chain or axillary nodes were noted HEMATOPOIETIC: No bruising NECK: Supple, no JVD, no thyromegaly was noted. LUNGS: Clear to auscultation in all lung cespedes without rhonchi or wheezing. HEART: RRR, S1, S2 present. Peripheral pulses intact, no obvious murmurs were noted. ABDOMEN: The patient has got distended abdomen. There is a ventral hernia. EXTREMITIES: Without any cyanosis, clubbing, or edema. Pedal pulses intact, Homans sign is negative. NEUROLOGIC: He is weak. PSYCHIATRIC: He is weak and somewhat depressed. SKIN: No ulcerations or rashes, good skin turgor, no jaundice. VASCULAR: Good capillary refill, neurovascular bundle appears to be intact. ASSESSMENT AND PLAN: Incarcerated ventral hernia. The patient has been admitted. We have consulted General Surgery. He is going to surgery today. Postoperatively, he is going to need aggressive wound care, home meds, DVT prophylaxis. Full code. Trend labs. KAMRYN FINE DO DR: MARICRUZ/kelsey JOB#: [id number] / [id number]
[2020-10-03 11:00] VITALS: BP 141/84
[2020-10-03 15:00] VITALS: BP 122/79
[2020-10-03] MEDS ORDERED: fentaNYL PF VIAL 100 MCG/2 ML VIAL IVP PRN (18:15)
[2020-10-03] MEDS: MORPHINE SULFATE 2 MG/ML VIAL. IV PRN ×3 (18:25→22:48)
[2020-10-03 19:15] VITALS: BP 142/93
[2020-10-03 22:59] VITALS: BP 150/96
[2020-10-04] VITALS (11 sets, daily range): BP systolic 136–166; BP diastolic 85–99
[2020-10-04] MEDS: MORPHINE SULFATE 2 MG/ML VIAL. IV PRN ×5 (01:55→17:42)
[2020-10-04] MEDS: IV NORMAL SALINE 1000ML BAG 1,000 ML IV SCH ×2 (05:29→16:55)
[2020-10-04] MEDS ORDERED: HYDROmorphone 2 MG/ML VIAL IVP PRN (06:00)
[2020-10-04] MEDS ORDERED: IV RINGERS,LACTATED 1000ML 1,000 ML IV SCH (06:00)
[2020-10-04] MEDS ORDERED: fentaNYL PF VIAL 100 MCG/2 ML VIAL IVP PRN ×3 (06:00→09:30)
[2020-10-04] MEDS ORDERED: PROCHLORPERAZINE 10 MG/2 ML VIAL. IVP PRN (06:00)
[2020-10-04] MEDS ORDERED: MORPHINE SULFATE 2 MG/ML VIAL. IVP PRN (06:00)
[2020-10-04] MEDS ORDERED: fentaNYL PF VIAL 250 MCG/5 ML VIAL ONE (06:58)
[2020-10-04] MEDS ORDERED: MIDAZOLAM HCL/PF 2 MG/2 ML VIAL. ONE (06:58)
[2020-10-04] MEDS ORDERED: LIDOCAINE 2% PF 5 ML VIAL. ONE (06:58)
[2020-10-04] MEDS ORDERED: PROPOFOL 10 MG/ML (20ML) VIAL. IV ONE (06:58)
[2020-10-04] MEDS ORDERED: ROCURONIUM 50 MG/5 ML VIAL. ONE ×2 (06:59→08:35)
[2020-10-04] MEDS ORDERED: METOPROLOL IV PUSH 5 MG/5 ML VIAL. IVP ONE (07:36)
[2020-10-04] MEDS ORDERED: BUPIVACAINE-EPI 0.25%-1:200000 MPF 30 ML VIAL. INJ ONE (08:00)
[2020-10-04] MEDS ORDERED: DEXAMETHASONE SOD PHOS 4 MG/ML VIAL ONE (08:10)
[2020-10-04] MEDS ORDERED: FAMOTIDINE 20 MG/2 ML VIAL ONE (08:10)
[2020-10-04] MEDS ORDERED: ONDANSETRON PF 4 MG/2 ML VIAL. ONE (08:26)
[2020-10-04] MEDS ORDERED: NEOSTIGMINE METHYLSULFATE 5 MG/5 ML SYRINGE. ONE (09:01)
[2020-10-04] MEDS ORDERED: GLYCOPYRROLATE 1 MG/5 ML VIAL. ONE (09:01)
[2020-10-04] MEDS ORDERED: HYDROmorphone 2 MG/ML VIAL ONE (09:07)
--- NOTE | 2020-10-04 09:10 | PDOC4 ---
Operative Note Operative Note Date: October 042019 at 0919 Preoperative diagnosis: Incarcerated incisional hernia Postoperative diagnosis: Same Procedure: Incisional hernia repair with mesh in the retrorectus space Surgeon: Slick Specimen: Hernia sac Dictation: Patient is a 49-year-old gentleman with a incisional hernia was admitted to the hospital with abdominal pain nausea vomiting CT scan showing signs consistent with an incarcerated ventral hernia involving bowel possibly small bowel obstruction. Procedure of hernia repair with mesh was explained to the patient detail was benefits were also discussed including bleeding infection injury to intra-abdominal contents possibly small bowel resection alternatives to this procedure also discussed with the patient who seemed to understand and gave both verbal and written consent to have the procedure performed. Patient was taken to the operating room placed in supine position general anesthesia was initiated once patient was sleeping intubated his abdomen was prepped and draped usual sterile fashion using ChloraPrep.. The previous midline incision scar was excised sharply with 10 blade scalpel and electrocautery. Electrocautery was used to open the subcutaneous space down to the hernia sac which was incised quite a few adhesions within the hernia sac these were taken down with electrocautery and the hernia sac was excised. There were 2 fascial defects the bridge between them was taken down with electrocautery. The space between the rectus muscle inferiorly to the peritoneum was incised this was propagated circumferentially allowing for closure of the peritoneum this was closed with a running oh looped PDS been cheerio ST mesh was then placed over the defect is a 14 x 14 cm circular piece of mesh this was sewn in place in 4 quadrants with #1 Prolene the anterior fascia was then closed over the mesh with a running oh loop PDS the deep subcutaneous layer was closed with a running 2-0 Vicryl and the skin was reapproximated for subcuticular Monocryl Mastisol Steri-Strips and island dressings were applied. Patient was awakened and extubated in the operating room taken to recovery in stable condition all sponge instrument needle counts listed as correct estimated blood loss 100 mL. ADRIAN SHARMA MD Oct 04, 2020 09:10
[2020-10-04] MEDS ORDERED: oxyCODONE/APAP 5/325 1 TAB TABLET PO PRN (09:30)
--- NOTE | 2020-10-04 09:43 | NUR ---
SW following. Discussed with RN, pt down for surgery this morning, room air, NPO. SW will continue to follow for any discharge planning needs.
[2020-10-04] MEDS ORDERED: SEVOFLURANE > 120 MINUTES. IH ONE (09:50)
[2020-10-04] MEDS: oxyCODONE/APAP 5/325 1 TAB TABLET PO PRN ×3 (13:08→21:10)
[2020-10-04] MEDS ORDERED: LISI-130 PO (13:17)
[2020-10-04] MEDS ORDERED: AMLO-186 PO (13:17)
[2020-10-04] MEDS: POTASSIUM CHLORIDE 10 MEQ TABLET.ER. PO SCH (14:00)
[2020-10-04] MEDS: LISINOPRIL 20 MG TABLET PO SCH (15:25)
[2020-10-04] MEDS: PANTOPRAZOLE 40 MG TABLET.DR. PO SCH (15:25)
[2020-10-04] MEDS: METOPROLOL SUCC 24HR ER 100 MG TAB.ER.24H. PO SCH (20:02)
[2020-10-05] MEDS: MORPHINE SULFATE 2 MG/ML VIAL. IV PRN (00:21)
[2020-10-05] MEDS: IV NORMAL SALINE 1000ML BAG 1,000 ML IV SCH ×2 (00:22→19:10)
[2020-10-05] MEDS: oxyCODONE/APAP 5/325 1 TAB TABLET PO PRN ×5 (01:46→20:57)
[2020-10-05 03:11] VITALS: BP 136/85
[2020-10-05] MEDS: PANTOPRAZOLE 40 MG TABLET.DR. PO SCH (06:08)
[2020-10-05 07:00] VITALS: BP 146/90
[2020-10-05] MEDS: LISINOPRIL 20 MG TABLET PO SCH (08:20)
[2020-10-05] MEDS: METOPROLOL SUCC 24HR ER 100 MG TAB.ER.24H. PO SCH ×2 (08:20→20:56)
[2020-10-05] MEDS: POTASSIUM CHLORIDE 10 MEQ TABLET.ER. PO SCH (08:21)
--- NOTE | 2020-10-05 10:03 | NUR ---
SW following. Discussed with RN. pt from a [facility], room air, clear liquid diet, rapid COVID-19 negative. Pt had surgery 10/04. RN advised no SW needs at this time. SW will continue to follow.
--- NOTE | 2020-10-05 10:48 | PDOC ---
[employer] PROGRESS NOTE Date of Service DOS: DATE: 10/05/20 TIME: 10:47 Chief Complaint Chief Complaint Incarcerated incisional hernia Diabetes Hypertension Hyperlipidemia Arthritis GERD History of Present Illness History of Present Illness The patient is a pleasant 49-year-old male who presented to the ER at [facility] with abdominal pain. They did some scanning, it is showing an inc arcerated hernia, accepted the patient's transfer, he is going to surgery today. 10/05 Patient seen and examined Chart reviewed Discussed with RN Discussed with case management Patient is comfortable and was resting when we seen him Vitals/I&O Vitals/I&O: Vital Signs Date Time Temp Pulse Resp B/P (MAP) Pulse Ox O2 Delivery O2 Flow Rate FiO2 10/05/20 08:20 77 146/90 10/05/20 07:34 Room Air 10/05/20 07:00 97.1 17 96 97.1 10/04/20 13:08 2.0 I & O 10/04/20 10/04/20 10/05/20 15:00 23:00 07:00 Intake Total 1075 ml 360 ml Output Total 160 ml 800 ml Balance 915 ml 360 ml -800 ml Physical Exam General: Alert, Oriented X3, Cooperative, mild distress Heart: Regular rate, No murmurs Lungs: Clear Abdomen: Normal bowel sounds, Soft, Other (Mildly tender at the umbilicus abdomen is soft no palpable bulge) Extremities: No clubbing, No edema Skin: No rashes, No significant lesion Review of Systems Review of Systems: Denies headache, changes in vision, numbness. Denies itching, or rashes. Assessment and Plan Assessmemt and Plan Assessment: Incarcerated incisional hernia Diabetes Hypertension Hyperlipidemia Arthritis GERD Plan: Hope to advance diet Hope to discharge tomorrow Start Colace DVT prophylaxis Full code Home meds Comment Review of Relevant I have reviewed the following items jadyn (where applicable) has been applied. Medications: Current Medications Medications (Trade) Dose Ordered Sig/Christen Route PRN Reason Start Time Stop Time Status Last Admin Dose Admin Amlodipine Besylate (Norvasc) 5 mg DAILY PO 10/04/20 14:00 10/05/20 08:20 Lisinopril (Prinivil) 40 mg DAILY PO 10/04/20 14:00 10/05/20 08:20 Metoprolol Succinate (Toprol Xl) 100 mg BID PO 12/30/20 21:00 10/05/20 08:20 Pantoprazole Sodium (Protonix) 40 mg DAILYAC PO 10/04/20 14:00 10/05/20 06:08 Justifications for Admission Other Justification KAMRYN FINE III DO Oct 05, 2020 10:48
[2020-10-05 10:54] VITALS: BP 153/96
--- NOTE | 2020-10-05 11:11 | PDOC ---
SURGICAL PROGRESS NOTE DATE: 10/05/20 TIME: 11:09 Subjective tolerating clears hungry no /v pain managed Vital Signs Vital Signs Date Time Temp Pulse Resp B/P (MAP) Pulse Ox O2 Delivery O2 Flow Rate FiO2 10/05/20 10:54 97.6 72 19 153/96 (115) 95 Room Air 97.6 10/04/20 13:08 2.0 I&O Intake and Output 10/05/20 07:00 Intake Total 1435 ml Output Total 960 ml Balance 475 ml Intake Oral 560 ml IV Total 875 ml Output Urine Total 860 ml Estimated Blood Loss 100 ml General: Alert, Oriented X3, Cooperative Abdomen: Soft, Other (dressing dry, binder in place) Problem List s/p IHR advance diet Justicifation of Admission Dx: Justifications for Admission: Justification of Admission Dx: Yes MARAH HOBSON APRN Oct 05, 2020 11:11
[2020-10-05] MEDS: DOCUSATE SODIUM 100 MG CAPSULE. PO SCH ×2 (11:16→20:55)
[2020-10-05 15:00] VITALS: BP 138/94
[2020-10-05 19:00] VITALS: BP 123/77
[2020-10-05] MEDS: IBUPROFEN 400 MG TABLET. PO PRN (20:56)
[2020-10-05 23:00] VITALS: BP 125/77
[2020-10-06 03:00] VITALS: BP 98/59
[2020-10-06 07:00] VITALS: BP 122/76
[2020-10-06] MEDS: DOCUSATE SODIUM 100 MG CAPSULE. PO SCH ×2 (08:31→21:06)
[2020-10-06] MEDS: POTASSIUM CHLORIDE 10 MEQ TABLET.ER. PO SCH (08:32)
[2020-10-06] MEDS: PANTOPRAZOLE 40 MG TABLET.DR. PO SCH (08:32)
[2020-10-06] MEDS: METOPROLOL SUCC 24HR ER 100 MG TAB.ER.24H. PO SCH ×2 (08:32→21:06)
[2020-10-06] MEDS: oxyCODONE/APAP 5/325 1 TAB TABLET PO PRN ×3 (08:32→21:07)
[2020-10-06] MEDS: LISINOPRIL 20 MG TABLET PO SCH (08:34)
[2020-10-06] MEDS: IV NORMAL SALINE 1000ML BAG 1,000 ML IV SCH ×2 (08:34→19:44)
--- NOTE | 2020-10-06 08:46 | PDOC ---
[employer] PROGRESS NOTE Date of Service DOS: DATE: 10/06/20 TIME: 08:43 Chief Complaint Chief Complaint Incarcerated incisional hernia Diabetes Hypertension Hyperlipidemia Arthritis GERD History of Present Illness History of Present Illness The patient is a pleasant 49-year-old male who presented to the ER at [facility] with abdominal pain. They did some scanning, it is showing an incar cerated hernia, accepted the patient's transfer, he is going to surgery today. 10/05 Patient seen and examined Chart reviewed Discussed with RN Discussed with case management Patient is comfortable and was resting when we seen him 10/06 Patient seen and examined Chart reviewed Discussed with RN Discussed with case management Patient is comfortable Vitals/I&O Vitals/I&O: Vital Signs Date Time Temp Pulse Resp B/P (MAP) Pulse Ox O2 Delivery O2 Flow Rate FiO2 10/06/20 08:34 68 122/76 10/06/20 08:32 Room Air 10/06/20 03:00 97.2 18 95 97.2 I & O 10/05/20 10/05/20 10/06/20 15:00 23:00 07:00 Intake Total 180 ml Balance 180 ml Physical Exam General: Alert, Oriented X3, Cooperative Heart: Regular rate, No murmurs Lungs: Clear Abdomen: Soft, Other (Mildly tender at the umbilicus abdomen is soft no palpa ble bulge) Extremities: No clubbing, No edema Skin: No rashes, Other (no itching) Review of Systems Review of Systems: Denies headache, changes in vision, or numbness Denies itching or rashes Assessment and Plan Assessmemt and Plan Assessment: Incarcerated incisional hernia Diabetes Hypertension Hyperlipidemia Arthritis GERD Plan: Start MiraLAX Discontinue IV fluids Discontinue IV morphine Continue colace Full code DVT prophylaxis Home meds Comment Review of Relevant I have reviewed the following items jadyn (where applicable) has been applied. Medications: Current Medications Medications (Trade) Dose Ordered Sig/Christen Route PRN Reason Start Time Stop Time Status Last Admin Dose Admin Docusate Sodium (Colace) 100 mg BID PO 10/05/20 12:00 10/06/20 08:31 Justifications for Admission Other Justification KAMRYN FINE III DO Oct 06, 2020 08:46
[2020-10-06 08:48] LABS: CALCIUM 8.6 mg/dL (8.5-10.1); CREATININE 0.5 mg/dL (0.7-1.3); GFR 175.3; POTASSIUM 4.7 mmol/L (3.5-5.1)
--- NOTE | 2020-10-06 09:02 | PDOC ---
MARAH HOBSON STEAM PLANT OPERATOR 10/06/20 0902: SURGICAL PROGRESS NOTE DATE: 10/06/20 TIME: 09:00 Subjective tolerating diet no flatus no n/v pain managed Vital Signs Vital Signs Date Time Temp Pulse Resp B/P (MAP) Pulse Ox O2 Delivery O2 Flow Rate FiO2 10/06/20 08:34 68 122/76 10/06/20 08:32 Room Air 10/06/20 03:00 97.2 18 95 97.2 I&O Intake and Output 10/06/20 07:00 Intake Total 180 ml Balance 180 ml Intake Oral 180 ml # Voids 3 General: Alert, Oriented X3, Cooperative Abdomen: Soft, Other (ND, incision c/d/i) Labs Laboratory Tests Test 10/06/20 06:30 Sodium Level 140 mmol/L (136-145) Potassium Level 4.7 mmol/L (3.5-5.1) Chloride Level 104 mmol/L (98-107) Carbon Dioxide Level 26 mmol/L (21-32) Anion Gap 10 (6-14) Blood Urea Nitrogen 15 mg/dL (8-26) Creatinine 0.5 mg/dL (0.7-1.3) Estimated GFR (Cockcroft-Gault) 175.3 Glucose Level 78 mg/dL (70-99) Calcium Level 8.6 mg/dL (8.5-10.1) Laboratory Tests Test 10/06/20 06:30 Sodium Level 140 mmol/L (136-145) Potassium Level 4.7 mmol/L (3.5-5.1) Chloride Level 104 mmol/L (98-107) Carbon Dioxide Level 26 mmol/L (21-32) Anion Gap 10 (6-14) Blood Urea Nitrogen 15 mg/dL (8-26) Creatinine 0.5 mg/dL (0.7-1.3) Estimated GFR (Cockcroft-Gault) 175.3 Glucose Level 78 mg/dL (70-99) Calcium Level 8.6 mg/dL (8.5-10.1) Assessment/Plan ambulate would like to see at least some flatus prior to discharge also issue with [facility] unable to get pain medication on holiday/weekend--weather conditions poor today Justicifation of Admission Dx: Justifications for Admission: Justification of Admission Dx: Yes ADRIAN SHARMA MD 10/06/20 1113: SURGICAL PROGRESS NOTE Assessment/Plan Agree with Joseph's assessment and plan MARAH HOBSON APRN Oct 06, 2020 09:02 ADRIAN SHARMA MD Oct 06, 2020 11:13
[2020-10-06] MEDS ORDERED: POLYETHYLENE GLYCOL 3350 17 GM PACKET. PO PRN (09:15)
[2020-10-06 09:45] LABS: BASO # 0.1 x10^3/uL (0.0-0.2); BASO % 1 % (0-3); EOS # 0.7 x10^3/uL (0.0-0.7); EOS % 7 % (0-3); HEMATOCRIT 41.2 % (39.0-53.0); LYMPH # 1.9 x10^3/uL (1.0-4.8); LYMPH % 18 % (24-48); MEAN CORPUSCULAR HEMOGLOBIN 30 pg (25-35); MEAN CORPUSCULAR HGB CONC 34 g/dL (31-37); MEAN CORPUSCULAR VOLUME 87 fL (79-100); MONO # 1.1 x10^3/uL (0.0-1.1); MONO % 11 % (0-9); NEUT # 6.6 x10^3/uL (1.8-7.7); NEUT % 63 % (31-73); PLATELET COUNT 253 x10^3/uL (140-400); RED BLOOD COUNT 4.76 x10^6/uL (4.30-5.70); RED CELL DISTRIBUTION WIDTH 13.9 % (11.5-14.5); WHITE BLOOD COUNT 10.5 x10^3/uL (4.0-11.0)
[2020-10-06 11:00] VITALS: BP 125/78
[2020-10-06 15:00] VITALS: BP 120/72
[2020-10-06 23:19] VITALS: BP 124/77
[2020-10-07] MEDS: oxyCODONE/APAP 5/325 1 TAB TABLET PO PRN ×5 (01:14→21:21)
[2020-10-07 02:55] VITALS: BP 126/78
[2020-10-07 07:00] VITALS: BP 135/80
[2020-10-07] MEDS: DOCUSATE SODIUM 100 MG CAPSULE. PO SCH ×2 (08:02→21:21)
[2020-10-07] MEDS: LISINOPRIL 20 MG TABLET PO SCH (08:02)
[2020-10-07] MEDS: POTASSIUM CHLORIDE 10 MEQ TABLET.ER. PO SCH (08:03)
[2020-10-07] MEDS: PANTOPRAZOLE 40 MG TABLET.DR. PO SCH (08:03)
[2020-10-07] MEDS: METOPROLOL SUCC 24HR ER 100 MG TAB.ER.24H. PO SCH ×2 (08:03→21:22)
[2020-10-07 08:23] LABS: BASO # 0.1 x10^3/uL (0.0-0.2); BASO % 1 % (0-3); EOS # 0.7 x10^3/uL (0.0-0.7); EOS % 7 % (0-3); HEMATOCRIT 40.7 % (39.0-53.0); HEMOGLOBIN 14.4 g/dL (13.0-17.5); LYMPH # 1.5 x10^3/uL (1.0-4.8); LYMPH % 15 % (24-48); MEAN CORPUSCULAR HEMOGLOBIN 30 pg (25-35); MEAN CORPUSCULAR HGB CONC 35 g/dL (31-37); MEAN CORPUSCULAR VOLUME 85 fL (79-100); MONO # 0.8 x10^3/uL (0.0-1.1); MONO % 8 % (0-9); NEUT % 70 % (31-73); PLATELET COUNT 291 x10^3/uL (140-400); RED BLOOD COUNT 4.79 x10^6/uL (4.30-5.70); WHITE BLOOD COUNT 10.1 x10^3/uL (4.0-11.0)
[2020-10-07 08:56] LABS: CALCIUM 8.9 mg/dL (8.5-10.1); CREATININE 0.8 mg/dL (0.7-1.3); GFR 101.9; POTASSIUM 3.7 mmol/L (3.5-5.1)
--- NOTE | 2020-10-07 09:44 | PDOC ---
[employer] PROGRESS NOTE Date of Service DOS: DATE: 10/07/20 TIME: 09:42 Chief Complaint Chief Complaint Incarcerated incisional hernia Diabetes Hypertension Hyperlipidemia Arthritis GERD History of Present Illness History of Present Illness The patient is a pleasant 49-year-old male who presented to the ER at [facility] with abdominal pain. They did some scanning, it is showing an incar cerated hernia, accepted the patient's transfer, he is going to surgery today. 10/05 Patient seen and examined Chart reviewed Discussed with RN Discussed with case management Patient is comfortable and was resting when we seen him 10/06 Patient seen and examined Chart reviewed Discussed with RN Discussed with case management Patient is comfortable 10/07 Patient seen and examined Chart reviewed Discussed with RN Patient is comfortable and passed gas today Vitals/I&O Vitals/I&O: Vital Signs Date Time Temp Pulse Resp B/P (MAP) Pulse Ox O2 Delivery O2 Flow Rate FiO2 10/07/20 08:03 67 135/80 10/07/20 08:01 Room Air 10/07/20 07:00 98.0 14 96 98.0 I & O 10/06/20 10/06/20 10/07/20 15:00 23:00 07:00 Intake Total 480 ml 720 ml Output Total 400 ml 300 ml Balance 80 ml 420 ml Physical Exam General: Alert, Oriented X3, Cooperative Heart: Regular rate, No murmurs Lungs: Clear Abdomen: Soft, Other (ND, incision c/d/i) Extremities: No clubbing, No edema Skin: No rashes, Other (no itching) Labs Labs: Laboratory Tests Test 10/07/20 07:15 White Blood Count 10.1 x10^3/uL (4.0-11.0) Red Blood Count 4.79 x10^6/uL (4.30-5.70) Hemoglobin 14.4 g/dL (13.0-17.5) Hematocrit 40.7 % (39.0-53.0) Mean Corpuscular Volume 85 fL (79-100) Mean Corpuscular Hemoglobin 30 pg (25-35) Mean Corpuscular Hemoglobin Concent 35 g/dL (31-37) Red Cell Distribution Width 14.0 % (11.5-14.5) Platelet Count 291 x10^3/uL (140-400) Neutrophils (%) (Auto) 70 % (31-73) Lymphocytes (%) (Auto) 15 % (24-48) Monocytes (%) (Auto) 8 % (0-9) Eosinophils (%) (Auto) 7 % (0-3) Basophils (%) (Auto) 1 % (0-3) Neutrophils # (Auto) 7.0 x10^3/uL (1.8-7.7) Lymphocytes # (Auto) 1.5 x10^3/uL (1.0-4.8) Monocytes # (Auto) 0.8 x10^3/uL (0.0-1.1) Eosinophils # (Auto) 0.7 x10^3/uL (0.0-0.7) Basophils # (Auto) 0.1 x10^3/uL (0.0-0.2) Sodium Level 141 mmol/L (136-145) Potassium Level 3.7 mmol/L (3.5-5.1) Chloride Level 103 mmol/L (98-107) Carbon Dioxide Level 30 mmol/L (21-32) Anion Gap 8 (6-14) Blood Urea Nitrogen 14 mg/dL (8-26) Creatinine 0.8 mg/dL (0.7-1.3) Estimated GFR (Cockcroft-Gault) 101.9 Glucose Level 99 mg/dL (70-99) Calcium Level 8.9 mg/dL (8.5-10.1) Review of Systems Review of Systems: Denies headache, changes in vision, or numbness Denies itching or rashes Assessment and Plan Assessmemt and Plan Assessment: Incarcerated incisional hernia Diabetes Hypertension Hyperlipidemia Arthritis GERD Plan: Continue MiraLAX Trend labs Discontinue IV fluids Discontinue IV morphine Continue colace Full code DVT prophylaxis Home meds Comment Review of Relevant I have reviewed the following items jadyn (where applicable) has been applied. Justifications for Admission Other Justification KAMRYN FINE III DO Oct 07, 2020 09:44
[2020-10-07 11:00] VITALS: BP 132/73
--- NOTE | 2020-10-07 12:11 | PDOC ---
MARAH HOBSON CREDIT NEGOTIATOR 10/07/20 1211: SURGICAL PROGRESS NOTE DATE: 10/07/20 TIME: 12:10 Subjective pain managed tolerating diet + flatus Vital Signs Vital Signs Date Time Temp Pulse Resp B/P (MAP) Pulse Ox O2 Delivery O2 Flow Rate FiO2 10/07/20 11:00 97.9 73 16 132/73 (92) 99 Room Air 97.9 I&O Intake and Output 10/07/20 07:00 Intake Total 1200 ml Output Total 700 ml Balance 500 ml Intake Oral 1200 ml Output Urine Total 700 ml # Voids 2 General: Alert, Oriented X3, Cooperative Abdomen: Soft, Other (incision intact) Labs Laboratory Tests Test 10/06/20 06:30 10/07/20 07:15 White Blood Count 10.5 x10^3/uL (4.0-11.0) 10.1 x10^3/uL (4.0-11.0) Red Blood Count 4.76 x10^6/uL (4.30-5.70) 4.79 x10^6/uL (4.30-5.70) Hemoglobin 14.0 g/dL (13.0-17.5) 14.4 g/dL (13.0-17.5) Hematocrit 41.2 % (39.0-53.0) 40.7 % (39.0-53.0) Mean Corpuscular Volume 87 fL (79-100) 85 fL (79-100) Mean Corpuscular Hemoglobin 30 pg (25-35) 30 pg (25-35) Mean Corpuscular Hemoglobin Concent 34 g/dL (31-37) 35 g/dL (31-37) Red Cell Distribution Width 13.9 % (11.5-14.5) 14.0 % (11.5-14.5) Platelet Count 253 x10^3/uL (140-400) 291 x10^3/uL (140-400) Neutrophils (%) (Auto) 63 % (31-73) 70 % (31-73) Lymphocytes (%) (Auto) 18 % (24-48) 15 % (24-48) Monocytes (%) (Auto) 11 % (0-9) 8 % (0-9) Eosinophils (%) (Auto) 7 % (0-3) 7 % (0-3) Basophils (%) (Auto) 1 % (0-3) 1 % (0-3) Neutrophils # (Auto) 6.6 x10^3/uL (1.8-7.7) 7.0 x10^3/uL (1.8-7.7) Lymphocytes # (Auto) 1.9 x10^3/uL (1.0-4.8) 1.5 x10^3/uL (1.0-4.8) Monocytes # (Auto) 1.1 x10^3/uL (0.0-1.1) 0.8 x10^3/uL (0.0-1.1) Eosinophils # (Auto) 0.7 x10^3/uL (0.0-0.7) 0.7 x10^3/uL (0.0-0.7) Basophils # (Auto) 0.1 x10^3/uL (0.0-0.2) 0.1 x10^3/uL (0.0-0.2) Sodium Level 140 mmol/L (136-145) 141 mmol/L (136-145) Potassium Level 4.7 mmol/L (3.5-5.1) 3.7 mmol/L (3.5-5.1) Chloride Level 104 mmol/L (98-107) 103 mmol/L (98-107) Carbon Dioxide Level 26 mmol/L (21-32) 30 mmol/L (21-32) Anion Gap 10 (6-14) 8 (6-14) Blood Urea Nitrogen 15 mg/dL (8-26) 14 mg/dL (8-26) Creatinine 0.5 mg/dL (0.7-1.3) 0.8 mg/dL (0.7-1.3) Estimated GFR (Cockcroft-Gault) 175.3 101.9 Glucose Level 78 mg/dL (70-99) 99 mg/dL (70-99) Calcium Level 8.6 mg/dL (8.5-10.1) 8.9 mg/dL (8.5-10.1) Laboratory Tests Test 10/07/20 07:15 White Blood Count 10.1 x10^3/uL (4.0-11.0) Red Blood Count 4.79 x10^6/uL (4.30-5.70) Hemoglobin 14.4 g/dL (13.0-17.5) Hematocrit 40.7 % (39.0-53.0) Mean Corpuscular Volume 85 fL (79-100) Mean Corpuscular Hemoglobin 30 pg (25-35) Mean Corpuscular Hemoglobin Concent 35 g/dL (31-37) Red Cell Distribution Width 14.0 % (11.5-14.5) Platelet Count 291 x10^3/uL (140-400) Neutrophils (%) (Auto) 70 % (31-73) Lymphocytes (%) (Auto) 15 % (24-48) Monocytes (%) (Auto) 8 % (0-9) Eosinophils (%) (Auto) 7 % (0-3) Basophils (%) (Auto) 1 % (0-3) Neutrophils # (Auto) 7.0 x10^3/uL (1.8-7.7) Lymphocytes # (Auto) 1.5 x10^3/uL (1.0-4.8) Monocytes # (Auto) 0.8 x10^3/uL (0.0-1.1) Eosinophils # (Auto) 0.7 x10^3/uL (0.0-0.7) Basophils # (Auto) 0.1 x10^3/uL (0.0-0.2) Sodium Level 141 mmol/L (136-145) Potassium Level 3.7 mmol/L (3.5-5.1) Chloride Level 103 mmol/L (98-107) Carbon Dioxide Level 30 mmol/L (21-32) Anion Gap 8 (6-14) Blood Urea Nitrogen 14 mg/dL (8-26) Creatinine 0.8 mg/dL (0.7-1.3) Estimated GFR (Cockcroft-Gault) 101.9 Glucose Level 99 mg/dL (70-99) Calcium Level 8.9 mg/dL (8.5-10.1) Assessment/Plan stable surgically Justicifation of Admission Dx: Justifications for Admission: Justification of Admission Dx: Yes ADRIAN SHARMA MD 10/07/20 1407: SURGICAL PROGRESS NOTE Assessment/Plan Agree with Ced assessment plan MARAH HOBSON APRN Oct 07, 2020 12:11 ADRIAN SHARMA MD Oct 07, 2020 14:07
[2020-10-07] MEDS: IV NORMAL SALINE 1000ML BAG 1,000 ML IV SCH (14:26)
[2020-10-07 15:00] VITALS: BP 159/85
[2020-10-07 19:45] VITALS: BP 151/92
[2020-10-07 23:00] VITALS: BP 144/83
[2020-10-08 02:40] VITALS: BP 120/84
[2020-10-08] MEDS: IV NORMAL SALINE 1000ML BAG 1,000 ML IV SCH ×2 (03:15→07:25)
[2020-10-08 07:00] VITALS: BP 123/81
[2020-10-08] MEDS: PANTOPRAZOLE 40 MG TABLET.DR. PO SCH (08:08)
[2020-10-08] MEDS: DOCUSATE SODIUM 100 MG CAPSULE. PO SCH (08:09)
[2020-10-08] MEDS: LISINOPRIL 20 MG TABLET PO SCH (08:09)
[2020-10-08] MEDS: POTASSIUM CHLORIDE 10 MEQ TABLET.ER. PO SCH (08:09)
[2020-10-08] MEDS: METOPROLOL SUCC 24HR ER 100 MG TAB.ER.24H. PO SCH (08:10)
[2020-10-08] MEDS: IBUPROFEN 400 MG TABLET. PO PRN (08:10)
[2020-10-08 08:29] LABS: BASO # 0.1 x10^3/uL (0.0-0.2); BASO % 1 % (0-3); EOS # 0.8 x10^3/uL (0.0-0.7); EOS % 8 % (0-3); HEMATOCRIT 40.1 % (39.0-53.0); HEMOGLOBIN 14.2 g/dL (13.0-17.5); LYMPH # 1.5 x10^3/uL (1.0-4.8); LYMPH % 15 % (24-48); MEAN CORPUSCULAR HEMOGLOBIN 30 pg (25-35); MEAN CORPUSCULAR HGB CONC 35 g/dL (31-37); MEAN CORPUSCULAR VOLUME 84 fL (79-100); MONO # 0.7 x10^3/uL (0.0-1.1); MONO % 7 % (0-9); NEUT # 6.7 x10^3/uL (1.8-7.7); NEUT % 69 % (31-73); PLATELET COUNT 308 x10^3/uL (140-400); RED BLOOD COUNT 4.77 x10^6/uL (4.30-5.70); RED CELL DISTRIBUTION WIDTH 13.8 % (11.5-14.5); WHITE BLOOD COUNT 9.8 x10^3/uL (4.0-11.0)
[2020-10-08 08:46] LABS: CALCIUM 8.6 mg/dL (8.5-10.1); CREATININE 0.6 mg/dL (0.7-1.3); POTASSIUM 3.7 mmol/L (3.5-5.1)
--- NOTE | 2020-10-08 10:42 | PDOC ---
[employer] PROGRESS NOTE Date of Service DOS: DATE: 10/08/20 TIME: 10:40 Chief Complaint Chief Complaint Incarcerated incisional hernia Diabetes Hypertension Hyperlipidemia Arthritis GERD History of Present Illness History of Present Illness The patient is a pleasant 49-year-old male who presented to the ER at [facility] with abdominal pain. They did some scanning, it is showing an incar cerated hernia, accepted the patient's transfer, he is going to surgery today. 10/05 Patient seen and examined Chart reviewed Discussed with RN Discussed with case management Patient is comfortable and was resting when we seen him 10/06 Patient seen and examined Chart reviewed Discussed with RN Discussed with case management Patient is comfortable 10/07 Patient seen and examined Chart reviewed Discussed with RN Patient is comfortable and passed gas today 10/08 Patient seen and examined Chart reviewed Discussed with RN Patient states pain is 2/10 in severity, he had bowel movements today Vitals/I&O Vitals/I&O: Vital Signs Date Time Temp Pulse Resp B/P (MAP) Pulse Ox O2 Delivery O2 Flow Rate FiO2 10/08/20 08:10 60 123/81 10/08/20 07:00 97.7 20 97 Room Air 97.7 I & O 10/07/20 10/07/20 10/08/20 15:00 23:00 07:00 Intake Total 220 ml 720 ml Balance 220 ml 720 ml Physical Exam General: Alert, Oriented X3, Cooperative Heart: Regular rate, No murmurs Lungs: Clear Abdomen: Soft, Other (incision intact) Extremities: No clubbing, No edema Skin: No rashes, Other (no itching) Labs Labs: Laboratory Tests Test 10/08/20 07:50 White Blood Count 9.8 x10^3/uL (4.0-11.0) Red Blood Count 4.77 x10^6/uL (4.30-5.70) Hemoglobin 14.2 g/dL (13.0-17.5) Hematocrit 40.1 % (39.0-53.0) Mean Corpuscular Volume 84 fL (79-100) Mean Corpuscular Hemoglobin 30 pg (25-35) Mean Corpuscular Hemoglobin Concent 35 g/dL (31-37) Red Cell Distribution Width 13.8 % (11.5-14.5) Platelet Count 308 x10^3/uL (140-400) Neutrophils (%) (Auto) 69 % (31-73) Lymphocytes (%) (Auto) 15 % (24-48) Monocytes (%) (Auto) 7 % (0-9) Eosinophils (%) (Auto) 8 % (0-3) Basophils (%) (Auto) 1 % (0-3) Neutrophils # (Auto) 6.7 x10^3/uL (1.8-7.7) Lymphocytes # (Auto) 1.5 x10^3/uL (1.0-4.8) Monocytes # (Auto) 0.7 x10^3/uL (0.0-1.1) Eosinophils # (Auto) 0.8 x10^3/uL (0.0-0.7) Basophils # (Auto) 0.1 x10^3/uL (0.0-0.2) Sodium Level 139 mmol/L (136-145) Potassium Level 3.7 mmol/L (3.5-5.1) Chloride Level 103 mmol/L (98-107) Carbon Dioxide Level 27 mmol/L (21-32) Anion Gap 9 (6-14) Blood Urea Nitrogen 12 mg/dL (8-26) Creatinine 0.6 mg/dL (0.7-1.3) Estimated GFR (Cockcroft-Gault) 142.0 Glucose Level 106 mg/dL (70-99) Calcium Level 8.6 mg/dL (8.5-10.1) Review of Systems Review of Systems: Denies headache, changes in vision, or numbness Denies itching or rashes Assessment and Plan Assessmemt and Plan Assessment: Incarcerated incisional hernia Diabetes Hypertension Hyperlipidemia Arthritis GERD Plan: [facility]able discharge to federal custody in [facility] ([facility]) Continue MiraLAX Trend labs Discontinue IV fluids Discontinue IV morphine Continue colace Full code DVT prophylaxis Home meds Comment Review of Relevant I have reviewed the following items jadyn (where applicable) has been applied. Justifications for Admission Other Justification KAMRYN FINE III DO Oct 08, 2020 10:42
[2020-10-08 11:00] VITALS: BP 152/80
--- NOTE | 2020-10-08 11:52 | PDOC ---
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 10/08/20 1152: SURGICAL PROGRESS NOTE DATE: 10/08/20 TIME: 11:49 Subjective doing well pain managed tolerating diet having stools Vital Signs Vital Signs Date Time Temp Pulse Resp B/P (MAP) Pulse Ox O2 Delivery O2 Flow Rate FiO2 10/08/20 11:00 98.0 63 20 152/80 (104) 95 Room Air 98.0 I&O Intake and Output 10/08/20 07:00 Intake Total 940 ml Balance 940 ml Intake Oral 940 ml General: Alert, Oriented X3, Cooperative Abdomen: Soft (incision intact, some ecchymosis ) Labs Laboratory Tests Test 10/07/20 07:15 10/08/20 07:50 White Blood Count 10.1 x10^3/uL (4.0-11.0) 9.8 x10^3/uL (4.0-11.0) Red Blood Count 4.79 x10^6/uL (4.30-5.70) 4.77 x10^6/uL (4.30-5.70) Hemoglobin 14.4 g/dL (13.0-17.5) 14.2 g/dL (13.0-17.5) Hematocrit 40.7 % (39.0-53.0) 40.1 % (39.0-53.0) Mean Corpuscular Volume 85 fL (79-100) 84 fL (79-100) Mean Corpuscular Hemoglobin 30 pg (25-35) 30 pg (25-35) Mean Corpuscular Hemoglobin Concent 35 g/dL (31-37) 35 g/dL (31-37) Red Cell Distribution Width 14.0 % (11.5-14.5) 13.8 % (11.5-14.5) Platelet Count 291 x10^3/uL (140-400) 308 x10^3/uL (140-400) Neutrophils (%) (Auto) 70 % (31-73) 69 % (31-73) Lymphocytes (%) (Auto) 15 % (24-48) 15 % (24-48) Monocytes (%) (Auto) 8 % (0-9) 7 % (0-9) Eosinophils (%) (Auto) 7 % (0-3) 8 % (0-3) Basophils (%) (Auto) 1 % (0-3) 1 % (0-3) Neutrophils # (Auto) 7.0 x10^3/uL (1.8-7.7) 6.7 x10^3/uL (1.8-7.7) Lymphocytes # (Auto) 1.5 x10^3/uL (1.0-4.8) 1.5 x10^3/uL (1.0-4.8) Monocytes # (Auto) 0.8 x10^3/uL (0.0-1.1) 0.7 x10^3/uL (0.0-1.1) Eosinophils # (Auto) 0.7 x10^3/uL (0.0-0.7) 0.8 x10^3/uL (0.0-0.7) Basophils # (Auto) 0.1 x10^3/uL (0.0-0.2) 0.1 x10^3/uL (0.0-0.2) Sodium Level 141 mmol/L (136-145) 139 mmol/L (136-145) Potassium Level 3.7 mmol/L (3.5-5.1) 3.7 mmol/L (3.5-5.1) Chloride Level 103 mmol/L (98-107) 103 mmol/L (98-107) Carbon Dioxide Level 30 mmol/L (21-32) 27 mmol/L (21-32) Anion Gap 8 (6-14) 9 (6-14) Blood Urea Nitrogen 14 mg/dL (8-26) 12 mg/dL (8-26) Creatinine 0.8 mg/dL (0.7-1.3) 0.6 mg/dL (0.7-1.3) Estimated GFR (Cockcroft-Gault) 101.9 142.0 Glucose Level 99 mg/dL (70-99) 106 mg/dL (70-99) Calcium Level 8.9 mg/dL (8.5-10.1) 8.6 mg/dL (8.5-10.1) Laboratory Tests Test 10/08/20 07:50 White Blood Count 9.8 x10^3/uL (4.0-11.0) Red Blood Count 4.77 x10^6/uL (4.30-5.70) Hemoglobin 14.2 g/dL (13.0-17.5) Hematocrit 40.1 % (39.0-53.0) Mean Corpuscular Volume 84 fL (79-100) Mean Corpuscular Hemoglobin 30 pg (25-35) Mean Corpuscular Hemoglobin Concent 35 g/dL (31-37) Red Cell Distribution Width 13.8 % (11.5-14.5) Platelet Count 308 x10^3/uL (140-400) Neutrophils (%) (Auto) 69 % (31-73) Lymphocytes (%) (Auto) 15 % (24-48) Monocytes (%) (Auto) 7 % (0-9) Eosinophils (%) (Auto) 8 % (0-3) Basophils (%) (Auto) 1 % (0-3) Neutrophils # (Auto) 6.7 x10^3/uL (1.8-7.7) Lymphocytes # (Auto) 1.5 x10^3/uL (1.0-4.8) Monocytes # (Auto) 0.7 x10^3/uL (0.0-1.1) Eosinophils # (Auto) 0.8 x10^3/uL (0.0-0.7) Basophils # (Auto) 0.1 x10^3/uL (0.0-0.2) Sodium Level 139 mmol/L (136-145) Potassium Level 3.7 mmol/L (3.5-5.1) Chloride Level 103 mmol/L (98-107) Carbon Dioxide Level 27 mmol/L (21-32) Anion Gap 9 (6-14) Blood Urea Nitrogen 12 mg/dL (8-26) Creatinine 0.6 mg/dL (0.7-1.3) Estimated GFR (Cockcroft-Gault) 142.0 Glucose Level 106 mg/dL (70-99) Calcium Level 8.6 mg/dL (8.5-10.1) Problem List stable surgically dc per [facility] Justicifation of Admission Dx: Justifications for Admission: Justification of Admission Dx: Yes ADRIAN SHARMA MD 10/08/20 1307: SURGICAL PROGRESS NOTE Assessment/Plan Agree with [place] assessment and plan MARAH HOBSON APRN Oct 08, 2020 11:52 ADRIAN SHARMA MD Oct 08, 2020 13:07
--- NOTE | 2020-10-09 16:07 | PATHOLOGY ---
[facility] Accession Number: [id number] . 01 Material submitted: . hernia - HERNIA SAC . 01 Clinical history: . INCARCERATED HERNIA W/MESH VENTRAL INCISIONAL HERNIA REPAIR . 02 Diagnosis: Segment of focal mesothelial-lined fibromembranous and fibroadipose tissue, ventral incisional hernia repair: - Hernia sac showing focal reactive fibrosis and mild chronic inflammation. (JPM/db; 10/09/2020) LBQ 10/09/2020 1056 Local . 02 Electronically signed: . Landry Vigil MD, Pathologist NPI- [id number] . 01 Gross description: . Received in formalin labeled "Berhane Koenig, hernia sac" is a portion of pink-ramirez membranous tissue and attached yellow-ramirez lobulated tissue measuring 10.2 x 6.5 x 2.2 cm. The specimen is sectioned to reveal no nodules or masses, and focal fibrotic areas. Scanning Supervisor tissue is submitted in cassette A1. ([facility]; 10/05/2020) [facility] 10/05/2020 1303 Local . 02 Pathologist provided ICD-10: K43.9 . 02 CPT . [id number] Specimen Comment: A courtesy copy of this report has been sent to [phone] Specimen Comment: Report sent to Performed at: 01 [facility] [address], [place] [id number] MD Anton Hernandez MD Phone: [phone] Performed at: 02 [facility] [address] [place], [place] [id number] MD Landry Vigil MD Phone: [phone]
--- NOTE | 2020-10-11 10:24 | DS ---
DATE OF DISCHARGE: 10/08/2020 ADMISSION DIAGNOSIS: Incarcerated hernia. DISCHARGE DIAGNOSIS: Postop day 4 incarcerated hernia repair. HOSPITAL COURSE: The patient is a pleasant 49-year-old male who presented with an incarcerated hernia. He was admitted. We consulted General Surgery. He was taken to the OR for surgical correction of his hernia. Postoperatively, he did well. We discharged to the [facility] as he is an inmate who is about to be released in the next 30 days. DISPOSITION: [facility]. ACTIVITY: As tolerated. DIET: Low sodium. MEDICATIONS: Please see the MRAD. TOTAL TIME: 32 minutes. LILYL Brian FINE DO DR: MARICRUZ/kelsey JOB#: [id number] / [id number]
== END 2020-10-08 13:50 | disposition short-term general hospital (02) | DRG 355 ==
LOC: 4 NORTH 01:53
PROVIDERS: ADMIT Internal Medicine; ATTEND Internal Medicine
PROC: 0WUF0JZ Supplement Abdominal Wall with Synthetic Substitute, Open Approach (ICD-10-PCS; principal; 2020-10-04 07:30)
DX: K43.0 Incisional hernia with obstruction, without gangrene (principal); I10 Essential (primary) hypertension; E11.9 Type 2 diabetes mellitus without complications; E78.5 Hyperlipidemia, unspecified; K21.9 Gastro-esophageal reflux disease without esophagitis; M19.90 Unspecified osteoarthritis, unspecified site; Z20.828 Contact with and (suspected) exposure to other viral communicable diseases; Z90.49 Acquired absence of other specified parts of digestive tract; Z83.3 Family history of diabetes mellitus; Z82.49 Family history of ischemic heart disease and other diseases of the circulatory system
CPT/HCPCS: 36415; 80048; 80053; 85025; 87426; 88302; C1769; C1781; J0690; J1100; J1170; J2250; J2270; J2405; J2704; J2710; J3010; J3490; J7030; J7120; G0378